=== PATIENT | female | born 1950 | race Caucasian/White ===

== ENCOUNTER 2017-07-04 13:48 | Emergency (ER) | payer OTHER ==
--- NOTE | 2017-07-04 16:08 | ER ---
Nurse's Notes [facility] Name: Sumi Abarca Age: 67 yrs Sex: Female : 1950 Arrival Date: 07/04/2017 Time: 13:49 Bed 16 [facility] MD: Diagnosis: Left foot fracture Presentation: 07/04 13:56 Presenting complaint: Patient states: mechanical fall from standing yesterday, pain in la1 left ankle. Transition of care: patient was not received from another setting of care. Onset of symptoms was July 04, 2017. Initial Sepsis Screen: Does the patient meet any 2 criteria? No. Patient's initial sepsis screen is negative. Does the patient have a suspected source of infection? No. Patient's initial sepsis screen is negative. Care prior to arrival: None. 13:56 Method Of Arrival: Wheelchair la1 13:56 Acuity: AYANA 4 la1 Historical: - Allergies: 13:57 prenavil; la1 13:57 Levaquin; la1 13:57 Cipro; la1 13:57 Demerol; la1 13:57 Green Dye; la1 - Home Meds: 14:00 amlodipine oral 7.5 mg 3 tabs nightly [Active]; pioglitazone 15 mg oral tab 1 tab once rb1 daily [Active]; glipizide 2.5 mg Oral tr24 1 tabs once daily [Active]; irbesartan 150 mg oral tab 1 tab once daily [Active]; simvastatin 20 mg oral tab 1 tab once daily [Active]; hydrochlorothiazide 12.5 mg Oral cap 1 cap once daily [Active]; gabapentin 300 mg oral cap 2 caps bedtime [Active]; - PMHx: 13:57 Diabetes - NIDDM; Hypertension; la1 - Immunization history:: Adult Immunizations up to date. - Social history:: Smoking status: Patient/guardian denies using tobacco. Screenin:00 Abuse screen: Denies threats or abuse. Nutritional screening: No deficits noted. rb1 Tuberculosis screening: No symptoms or risk factors identified. Fall Risk Fall in past 12 months (25 points). No secondary diagnosis (0 pts). No IV (0 pts). Ambulatory Aid- None/Bed Rest/Nurse Assist (0 pts). Gait- Normal/Bed Rest/Wheelchair (0 pts) Mental Status- Oriented to own ability (0 pts). Total Celestin Fall Scale indicates Low Risk Score (25-44 pts). Fall prevention measures have been instituted. Side Rails Up X 2 Placed close to Nursing Station 1:1 attendant Assigned to Pt. Frequent Obs/Assesments occuring Family Present and informed to notify staff if they need to leave bedside As available Patient and Family Educated on Fall Prevention Program and strategies. Assessment: 14:00 General: Appears in no apparent distress. comfortable, obese, Behavior is calm, rb1 cooperative. Pain: Complains of pain in left lateral ankle Pain currently is 7 out of 10 on a pain scale. Pain began 1 day ago. Aggravated by increased activity. Neuro: Level of Consciousness is awake, alert, obeys commands, Oriented to person, place, time, situation. Cardiovascular: Capillary refill < 3 seconds is brisk in bilateral toes. Respiratory: Airway is patent Respiratory effort is even, unlabored, Respiratory pattern is regular, symmetrical. GI: No signs and/or symptoms were reported involving the gastrointestinal system. : No signs and/or symptoms were reported regarding the genitourinary system. Derm: Skin is pink, warm \T\ dry. Musculoskeletal: Range of motion: limited in left toes. 15:00 Reassessment: Patient appears in no apparent distress at this time. No changes from rb1 previously documented assessment. 16:00 Reassessment: Patient appears in no apparent distress at this time. Patient and/or rb1 family updated on plan of care and expected duration. Pain level reassessed. Patient is alert, oriented x 3, equal unlabored respirations, skin warm/dry/pink. at bedside. Vital Signs: 13:58 BP 133 / 63; Pulse 62; Resp 19; Temp 97.5; Pulse Ox 100% on R/A; Weight 108.86 kg; la1 Height 5 ft. 2 in. (157.48 cm); 14:46 BP 149 / 76; Pulse 64; Resp 18; Pulse Ox 99% on R/A; rb1 15:45 BP 180 / 91; Pulse 57; Resp 18; Pulse Ox 97% on R/A; rb1 16:40 BP 161 / 63; Pulse 60; Resp 19; Pulse Ox 100% on R/A; rb1 13:58 Body Mass Index 43.90 (108.86 kg, 157.48 cm) la1 ED Course: 13:49 Patient arrived in ED. sb2 13:55 [facility] kb 13:55 Caleb Mnozon MD is Attending Physician. kb 13:57 Triage completed. la1 13:58 Arm band placed on left wrist. la1 14:00 Patient has correct armband on for positive identification. Bed in low position. Call rb1 light in reach. Side rails up X 1. Pulse ox on. NIBP on. 14:07 Ila Pinto, RN is Primary Nurse. rb1 15:34 X-ray completed. Portable x-ray completed in exam room. Patient tolerated procedure bb2 well. 15:41 Ankle Left 3 View XRAY In Process Unspecified. EDMS 16:40 No provider procedures requiring assistance completed. Patient did not have IV access rb1 during this emergency room visit. Administered Medications: No medications were administered Outcome: 16:07 Discharge ordered by MD. kb 16:40 Patient left the ED. rb1 16:40 Discharged to home via wheelchair, with significant other. rb1 16:40 Condition: stable 16:40 Discharge instructions given to patient, Instructed on discharge instructions, follow up and referral plans. medication usage, Demonstrated understanding of instructions, follow-up care, medications, Prescriptions given X 1. Signatures: Dispatcher [employer] [facility] Mary Anne Mccoy FNP-C SUPERVISOR [employer] Claudio Martinez RN RN la1 Ila Pinto, RN RN rb1 Abby Samuels bb2 Desiy Gillette sb2 Corrections: (The following items were deleted from the chart) 17:58 16:50 Patient left the ED. rb1 rb1
--- NOTE | 2017-07-04 16:08 | EDPHYS ---
Physician Documentation [facility] Name: Sumi Abarca Age: 67 yrs Sex: Female : 1950 Arrival Date: 07/04/2017 Time: 13:49 Bed 16 Private MD: ED Physician Caleb Monzon HPI: 07/04 14:40 This 67 yrs old Female presents to ER via Wheelchair with complaints of Ankle kb Injury. 14:40 The patient presents with an injury, pain, that is acute, swelling, tenderness. The kb complaints affect the left ankle. Onset: The symptoms/episode began/occurred just prior to arrival. Context: The problem was sustained at home, outdoors, resulted from the patient falling, while walking, The patient can fully bear weight on the affected extremity. the patient is able to ambulate. Associated signs and symptoms: Pertinent positives: swelling, Pertinent negatives: calf tenderness, fever, nausea, numbness, rash, tingling, vomiting, warmth, weakness. Modifying factors: The symptoms are alleviated by nothing, the symptoms are aggravated by nothing. Severity of symptoms: At their worst the symptoms were moderate, in the emergency department the symptoms are unchanged. The patient has not experienced similar symptoms in the past. The patient has not recently seen a physician. Historical: - Allergies: 13:57 prenavil; la1 13:57 Levaquin; la1 13:57 Cipro; la1 13:57 Demerol; la1 13:57 Green Dye; la1 - Home Meds: 14:00 amlodipine oral 7.5 mg 3 tabs nightly [Active]; pioglitazone 15 mg oral tab 1 tab once rb1 daily [Active]; glipizide 2.5 mg Oral tr24 1 tabs once daily [Active]; irbesartan 150 mg oral tab 1 tab once daily [Active]; simvastatin 20 mg oral tab 1 tab once daily [Active]; hydrochlorothiazide 12.5 mg Oral cap 1 cap once daily [Active]; gabapentin 300 mg oral cap 2 caps bedtime [Active]; - PMHx: 13:57 Diabetes - NIDDM; Hypertension; la1 - Immunization history:: Adult Immunizations up to date. - Social history:: Smoking status: Patient/guardian denies using tobacco. ROS: 14:35 Constitutional: Negative for fever, chills, and weight loss, Cardiovascular: Negative kb for chest pain, palpitations, and edema, Respiratory: Negative for shortness of breath, cough, wheezing, and pleuritic chest pain, Abdomen/GI: Negative for abdominal pain, nausea, vomiting, diarrhea, and constipation, Back: Negative for injury and pain, : Negative for injury, bleeding, discharge, and swelling, Skin: Negative for injury, rash, and discoloration, Neuro: Negative for headache, weakness, numbness, tingling, and seizure. 14:35 MS/extremity: Positive for injury or acute deformity, pain, swelling, tenderness, of the left lateral ankle. Exam: 14:35 Constitutional: This is a well developed, well nourished patient who is awake, alert, kb and in no acute distress. Head/Face: Normocephalic, atraumatic. Chest/axilla: Normal chest wall appearance and motion. Nontender with no deformity. No lesions are appreciated. Cardiovascular: Regular rate and rhythm with a normal S1 and S2. No gallops, murmurs, or rubs. Normal PMI, no JVD. No pulse deficits. Respiratory: Lungs have equal breath sounds bilaterally, clear to auscultation and percussion. No rales, rhonchi or wheezes noted. No increased work of breathing, no retractions or nasal flaring. Abdomen/GI: Soft, non-tender, with normal bowel sounds. No distension or tympany. No guarding or rebound. No evidence of tenderness throughout. Skin: Warm, dry with normal turgor. Normal color with no rashes, no lesions, and no evidence of cellulitis. Neuro: Awake and alert, GCS 15, oriented to person, place, time, and situation. Cranial nerves II-XII grossly intact. Motor strength 5/5 in all extremities. Sensory grossly intact. Cerebellar exam normal. Normal gait. 14:35 Musculoskeletal/extremity: Extremities: grossly normal except: noted in the left lateral ankle: pain, swelling, tenderness, ROM: intact in all extremities, Circulation is intact in all extremities. Sensation intact. Weight bearing: able to fully bear weight. Vital Signs: 13:58 BP 133 / 63; Pulse 62; Resp 19; Temp 97.5; Pulse Ox 100% on R/A; Weight 108.86 kg; la1 Height 5 ft. 2 in. (157.48 cm); 14:46 BP 149 / 76; Pulse 64; Resp 18; Pulse Ox 99% on R/A; rb1 15:45 BP 180 / 91; Pulse 57; Resp 18; Pulse Ox 97% on R/A; rb1 16:40 BP 161 / 63; Pulse 60; Resp 19; Pulse Ox 100% on R/A; rb1 13:58 Body Mass Index 43.90 (108.86 kg, 157.48 cm) la1 MDM: 13:58 Patient medically screened. kb 14:35 Data reviewed: vital signs, nurses notes. Data interpreted: Pulse oximetry: on room air kb is 100 %. Interpretation: normal. Counseling: I had a detailed discussion with the patient and/or guardian regarding: the historical points, exam findings, and any diagnostic results supporting the discharge/admit diagnosis, radiology results, the need for outpatient follow up, a orthopedic surgeon, to return to the emergency department if symptoms worsen or persist or if there are any questions or concerns that arise at home. 07/04 14:09 Order name: Ankle Left 3 View XRAY kb 07/04 16:06 Order name: Short Leg Splint; Complete Time: 16:44 kb Administered Medications: No medications were administered Disposition: 18:55 Co-signature as Attending Physician, Caleb Monzon MD. Disposition: 07/04/17 16:07 Discharged to Home. Impression: Left foot fracture. - Condition is Stable. - Discharge Instructions: Ankle Fracture, [id number]. - Prescriptions for Tramadol 50 mg Oral Tablet - take 1 tablet by ORAL route every 8 hours as needed; 12 tablet. - Medication Reconciliation Form, Thank You Letter, Antibiotic Education, Prescription Opioid Use form. - Follow up: Emergency Department; When: As needed; Reason: Worsening of condition. Follow up: Private Physician; When: 2 - 3 days; Reason: Recheck today's complaints, Continuance of care, Re-evaluation by your physician. Signatures: Dispatcher [employer] Mary Anne Cardona FNP-C FNP-Ckb Attema, Lee RN RN la1 Ila Pinto RN RN rb1 Caleb Monzon MD MD gs Corrections: (The following items were deleted from the chart) 16:50 16:07 07/04/2017 16:07 Discharged to Home. Impression: Left foot fracture. Condition is rb1 Stable. Forms are Medication Reconciliation Form, Thank You Letter, Antibiotic Education, Prescription Opioid Use. Follow up: Emergency Department; When: As needed; Reason: Worsening of condition. Follow up: Private Physician; When: 2 - 3 days; Reason: Recheck today's complaints, Continuance of care, Re-evaluation by your physician. kb
--- NOTE | 2017-07-04 17:08 | RAD REPORT ---
EXAM DESCRIPTION: RAD - Ankle Left 3 View - 07/04/2017 3:40 pm CLINICAL HISTORY: Fall, twisting injury, ankle pain COMPARISON: None. FINDINGS: No large fracture deformity seen. A thin crescent-shaped bony density at the tip of the me dial malleolus is likely an avulsion fracture. Correlation is needed with mechanism of injury and carlos n symptoms that may be localizing to the medial joint line. No dislocation or periosteal reaction. Pa tient has moderately prominent midfoot degenerative change. A small plantar spur is noted. Slight diogenes rowing of the tibiotalar joint space seen. Patient has prominent lateral soft tissue swelling. IMPRESSION: Patient has prominent lateral soft tissue swelling but no finding of fibula fracture. Suspected small bony avulsion from the tip of the medial malleolus.
== END 2017-07-04 16:50 | disposition home or self-care (01) ==
LOC: ER 13:48
PROC: 2W3RX1Z Immobilization of Left Lower Leg using Splint (ICD-10-PCS; principal; 2017-07-04)
DX: S92.902A Unspecified fracture of left foot, initial encounter for closed fracture (principal); W19.XXXA Unspecified fall, initial encounter; Y93.01 Activity, walking, marching and hiking; Y92.008 Other place in unspecified non-institutional (private) residence as the place of occurrence of the external cause; Z88.1 Allergy status to other antibiotic agents; Z88.5 Allergy status to narcotic agent; Z91.048 Other nonmedicinal substance allergy status; I10 Essential (primary) hypertension; E11.9 Type 2 diabetes mellitus without complications
CPT/HCPCS: 99283

== ENCOUNTER 2018-02-23 17:07 | Inpatient (IN) | payer OTHER ==
--- OUTSIDE RECORDS SUMMARY | 2018-02-23 17:11 | XMS REPORT | Continuity of Care Document ---
:1950 Author Organization Interface Problems Problem Status Onset Classification Date Comments Source Date Reported MORBID OBESITY / Active OVEREATING 017 [facility] MORBID OBESTIY/ Active MH OVEREATING 017 [facility] UNK Active MH 0[address] [place] R11.11 Z98.84 Active 017 [facility] [address],MORBID OBESITY Active [address] Diabetes Active Problem 11/24/2016 [facility] Hypercholesterolemia Active Problem 11/24/2016 [facility] Hypertension Active Problem 11/24/2016 [facility] Obesity Active Problem 11/24/2016 [facility] VOMITING WITHOUT NAUSEA Active [facility] BARIATRIC SURGERY Active MH STATUS [facility] MORBID (SEVERE) OBESITY Active MH DUE TO EXCESS CA [facility] Medications Medication Details Route Status Patient Ordering Order Source Instructions Provider Date Sodium Chloride 1,000 mL, Inactive 0.154 MEQ/ML Rate: 25 2016 [facility] Injectable ml/hr, Infuse Solution over: 40 hr, Route: IV, Dosing Weight 99.574 kg, Total Volume: 1,000, Start date: 06/16/16 9:06:00 CDT, Duration: 30 day, Stop date: 07/16/16 9:05:00 CDT Azo-Cranberry oral 0 Refill(s) Active tablet 2016 [facility] multivitamin Daily, 0 Active Refill(s) 2016 [facility] Vitamin B Complex 1 tab, PO, Active oral capsule Daily, # 30 2016 [facility] cap, 0 Refill(s) biotin PO, Daily, 0 Active Refill(s) 2016 [facility] Hydrochlorothiazid PO, Daily, 0 Active e Refill(s) 2016 [facility] Amlodipine PO, Daily, 0 Active Refill(s) 2016 [facility] acetaminophen-hydr 15 mL, Route: No Longer ocodone PO, Drug Form: Active 2014 [facility] SOLN, Q4H, PRN [facility] Pain Score 4-6, Start date: 05/13/14 9:46:00, Duration: 30 day, Stop date: 06/12/14 9:45:00Notes: Do not exceed 4gm/day of acetaminophen. (Same as: [place] 325/7.5) Ketorolac 30 mg, Route: Inactive IVP, Q6H, 2014 [facility] Dosing Weight [facility] 104.545, kg, Start date: 05/12/14 12:00:00, Duration: 6 doses or times, Stop date: 05/13/14 18:00:00 Sodium Chloride 25 mL, Route: Inactive 0.9% IV IV, Start 2014 [facility] date: 05/12/[address] [facility] 9:45:00, Duration: 30 day, Stop date: 06/11/14 9:44:00, PRN Line Flush BD Normal Saline 10 mL, Route: Inactive Flush IV, Drug Form: 2014 [facility] INJ, PRN, PRN [place] Line Flush, Start date: 05/12/14 9:44:00, Duration: 30 day, Stop date: 06/11/14 9:43:00Notes: (Same as: BD Posiflush) Ondansetron 4 mg, 2 mL, Inactive Route: IVP, 2014 [facility] Drug form: City INJ, Q12H, Dosing Weight 104.545, kg, PRN Nausea & Vomiting, Start date: 05/12/14 9:17:00, Duration: 30 day, Stop date: 06/11/14 9:16:00Notes: (Same as: Zofran) Promethazine 12.5 mg, 0.5 Inactive mL, Route: IM, 2014 [facility] Drug form: [facility] INJ, Q4H, Dosing Weight 104.545, kg, PRN Nausea & Vomiting, Start date: 05/12/14 9:17:00, Duration: 30 day, Stop date: 06/11/14 9:16:00Notes: Do not give IV push. (Same as: Phenergan) Acetaminophen 20 15 mL, Route: Inactive MG/ML / PO, Dosing 2014 [facility] Hydrocodone Weight [facility] Bitartrate 0.667 104.545, kg, MG/ML Oral Q4H, PRN Pain Solution Score 4-6, Start date: 05/12/14 9:17:00, Duration: 30 day, Stop date: 06/11/14 9:16:00 Calcium Chloride 1,000 mL, Inactive 0.0014 MEQ/ML / Rate: 125 2014 [facility] Potassium Chloride ml/hr, Infuse [place] 0.004 MEQ/ML / over: 8 hr, Sodium Chloride Route: IV, 0.103 MEQ/ML / Dosing Weight Sodium Lactate 104.545 kg, 0.028 MEQ/ML Total Volume: Injectable 1,000, Start Solution date: 05/12/14 9:17:00, Duration: 30 day, Stop date: 06/11/14 9:16:00 Midazolam 1 mg, 1 mL, Inactive Route: IVP2014 [facility] Drug form: [place] INJ, Q5Min, Dosing Weight 104.545, kg, PRN Anxiety, Start date: 05/12/14 7:46:00, Duration: 2 doses or times, Stop date: Limited # of timesNotes: (Same as: Versed) Flumazenil 0.2 mg, 2 mL, Inactive Route: IV2014 [facility] Drug form: [place] INJ, PRN, Dosing Weight 104.545, kg, PRN Benzodiazepine Reversal, Initial dose, Start date: 05/12/14 7:46:00, Duration: 30 day, Stop date: 06/11/14 7:45:00Notes: (Same as: Romazicon) Morphine 2 mg, 0.2 mL, Inactive Route: IVP, 2014 [facility] Drug form: [place] INJ, Q5Min, Dosing Weight 104.545, kg, PRN Pain Score 4-6, Start date: 05/12/14 7:46:00, Duration: 5 doses or times, Stop date: Limited # of timesNotes: (Same as:MORPhine Sulfate) 72 HR Scopolamine 1 patch, Inactive 0.0139 MG/HR Route: [facility], 2014 [facility] Transdermal Patch Drug Form: [facility] ERFILM, Dosing Weight 104.545, kg, ONCE, Apply behind ear. Avoid use in elderly., Start date: 05/12/14 7:46:00, Stop date: 05/12/14 7:46:00Notes: Change patch every 72 hours (Same as: Transderm-Scop ) Promethazine 6.25 mg, 0.25 Inactive mL, Route: 2014 [facility] IVPB, ONCE, City Dosing Weight 104.545, kg, PRN Nausea & Vomiting, Start date: 05/12/14 7:46:00Notes: Do not give IV push. (Same as: Phenergan) Ondansetron 4 mg, 2 mL, Inactive Route: IVP, 2014 [facility] Drug form: [place] INJ, ONCE, Dosing Weight 104.545, kg, PRN Nausea & Vomiting, Start date: 05/12/14 7:46:00Notes: (Same as: Zofran) Hetastarch 500 ml, 1000 Inactive ml/hr, Route: 2014 [facility] IVPB, Drug City Form: INJ, Dosing Weight 104.545, kg, ONCE, Start date: 05/12/14 7:46:00, Duration: 1 doses or times, Stop date: 05/12/14 7:46:00Notes: (Same as: Hespan) Non-formulary. Naloxone 0.04 mg, 0.1 Inactive mL, Route: 2014 [facility] IVP, Drug [facility] form: INJ, Q2MIN, Dosing Weight 104.545, kg, PRN Narcotic Reversal, Start date: 05/12/14 7:46:00, Duration: 8 doses or times, Stop date: Limited # of timesNotes: Same as Narcan Ephedrine 5 mg, 0.1 mL, Inactive Route: IVP, 2014 [facility] Drug form: [place] INJ, Q5Min, Dosing Weight 104.545, kg, PRN Low Blood Pressure, Start date: 05/12/14 7:46:00, Duration: 30 day, Stop date: 06/11/14 7:45:00Notes: (Same as: ePHEDrine Sulfate) Diphenhydramine 12.5 mg, 0.25 Inactive mL, Route: 2014 [facility] IVP, Drug [facility] form: INJ, Q6H, Dosing Weight 104.545, kg, PRN Itching, Start date: 05/12/14 7:46:00, Duration: 30 day, Stop date: 06/11/14 7:45:00Notes: (Same as: Benadryl) Atropine 0.2 mg, 0.5 Inactive mL, Route: 2014 [facility] IVP, Drug City form: INJ, Q5Min, Dosing Weight 104.545, kg, PRN Other -See Comment, as needed; for symptomatic pulse rate Fentanyl 25 microgram, Inactive 0.5 mL, Route: 2014 [facility] IVP, Drug City form: INJ, Q5Min, Dosing Weight 104.545, kg, PRN Pain Score 4-6, Start date: 05/12/14 7:46:00, Duration: 4 doses or times, Stop date: Limited # of timesNotes: (Same as: Sublimaze) Preservative free. Ketorolac 30 mg, 1 mL, Inactive Route: IVP2014 [facility] Drug form: [facility] INJ, ONCE, Dosing Weight 104.545, kg, Start date: 05/12/14 7:46:00, Duration: 1 doses or times, Stop date: 05/12/14 7:46:00Notes: (Same as:Toradol) IV bolus must be given >15 seconds. Give IM administration slowly and deeply into the muscle. Not for use > 4 days Ibuprofen 600 mg, 1 tab, Inactive Route: PO, 2014 [facility] Drug form: [place] TAB, Q6H, Dosing Weight 104.545, kg, PRN Pain Score 1-3, Start date: 05/12/14 7:46:00, Duration: 30 day, Stop date: 06/11/14 7:45:00Notes: (Same as: Motrin) "Do Not Crush" Take with food. Labetalol 10 mg, 2 mL, Inactive Route: IVP, 2014 [facility] Drug form: [place] INJ, Q5Min, Dosing Weight 104.545, kg, PRN Elevated BP, Start date: 05/12/14 7:46:00, Duration: 5 doses or times, Stop date: Limited # of timesNotes: (Same as: Normodyne, Trandate) Push over 2 minutes Give bolus over 2-3 minutes. esmolol 10 mg, 1 mL, Inactive Route: IVP2014 [facility] Drug form: [place] INJ, Q5Min, Dosing Weight 104.545, kg, PRN Other -See Comment, Start date: 05/12/14 7:46:00, Duration: 5 doses or times, Stop date: Limited # of timesNotes: (Same as: Brevibloc) Metoprolol 1 mg, 1 mL, Inactive Route: IVP2014 [facility] Drug form: [place] INJ, Q5Min, Dosing Weight 104.545, kg, PRN Other -See Comment, Start date: 05/12/14 7:46:00, Duration: 5 doses or times, Stop date: Limited # of timesNotes: (Same as: Lopressor) Push over 2 minutes Hydralazine 10 mg, 0.5 mL, Inactive Route: IV2014 [facility] Drug form: [place] INJ, Q20Min, Dosing Weight 104.545, kg, PRN Elevated BP, Start date: 05/12/14 7:46:00, Duration: 2 doses or times, Stop date: Limited # of timesNotes: (Same as: Apresoline) Push over 5 minutes Hydromorphone 0.5 mg, 0.25 Inactive mL, Route: 2014 [facility] IVP, Drug City form: INJ, Q5Min, Dosing Weight 104.545, kg, PRN Pain Score 7-10, Start date: 05/12/14 7:46:00, Duration: 4 doses or times, Stop date: Limited # of timesNotes: (Same as: Dilaudid) Calcium Chloride 1,000 mL, Inactive 0.0014 MEQ/ML / Rate: 125 2014 [facility] Potassium Chloride ml/hr, Infuse [facility] 0.004 MEQ/ML / over: 8 hr, Sodium Chloride Route: IV, 0.103 MEQ/ML / Dosing Weight Sodium Lactate 104.545 kg, 0.028 MEQ/ML Total Volume: Injectable 1,000, Start Solution date: 05/12/14 7:46:00, Duration: 30 day, Stop date: 06/11/14 7:45:00 ceFAZolin 2 gm, 100 mL, Inactive Route: IVPB, 2014 [facility] Drug form: [place] INJ, PRE OP, Start date: 05/12/14 6:30:00, Stop date: 05/12/14 21:00:00Notes: Same as: Ancef heparin 5,000 unit, 1 Inactive mL, Route: 2014 [facility] SUB-Q, Drug City form: INJ, PRE OP, Start date: 05/12/14 6:30:00, Stop date: 05/12/14 21:00:00Notes: porcine heparin Fenofibrate 145 MG 145 mg=1 tab, Active Oral Tablet PO, Daily, # 2014 [facility] 30 tab, 0 City Refill(s) Furosemide 20 MG 20 mg=1 tab, Active Oral Tablet PO, Daily, # 2014 [facility] 30 tab, 0 City Refill(s) simvastatin 20 mg 20 mg=1 tab, Active oral tablet PO, Bedtime, # 2014 [facility] 30 tab, 0 City Refill(s) irbesartan 150 mg 150 mg=1 tab, Active oral tablet PO, Daily, # 2014 [facility] 30 tab, 0 City Refill(s) 24 HR Glipizide 2.5 mg=1 tab, Active 2.5 MG Extended PO, Daily, # 2014 [facility] Release Tablet 30 tab, 0 City Refill(s) pioglitazone 15 mg 15 mg=1 tab, Active oral tablet PO, Daily, # 2014 [facility] 30 tab, 0 City Refill(s) metoprolol 12.5 mg=0.5 Active tartrate 25 mg tab, PO, BID, 2014 [facility] oral tablet # 180 tab, 0 City Refill(s) Allergies, Adverse Reactions, Alerts Substance Category Reaction Severity Reaction Status Date Comments Source type Reported Allergy Assertion Drug Active [facility] MH Unverified<atylor allergy green # 3 [place] p>1</sup> ciprofloxacin Assertion Drug Active [facility] allergy [place] Demerol HCl Assertion Drug Active [facility] allergy [place] Levaquin Assertion Drug Active [facility] allergy [place] Prinivil Assertion Drug Active [facility] allergy [place] Immunizations Immunization Date Given Site Status Last Updated Comments Source Results Order Name Results Value Reference Date Interpretation Comments Source Range Fluoroscop Fluoroscopy Patient Name: CAMERON AWAD 10/23 - y assist assist to - [facility] to 1 hour hour DX : 1950; Age: 66 years y/o Female DX MR: [id number] Read by: Raghu Gardner MD Dictated Date/time: 10/23/16 16:19 Electronically Signed by: Raghu Gardner MD 10/23/16 16:20 FINAL REPORT Study: Fluoroscopy assist to 1 hour DX 10/23/2016 2:56 PM CDT Ordering Physician: Alberta Chen Clinical Indication: fluoro time: 14 sec. dose: 6 mGy Barium - morbid obesity, overeating; Comparison: None fluoro time: 14 sec. dose: 6 mGy Barium - morbid obesity, overeating Lap band check was performed by the lap band nurse. Fluoroscopic assistance for the lap band check was provided by the radiologist. SL: [id number] ANEMIA Vitamin B12 460 pg/mL 254 - 1320 06/09 STUDY Lv [facility] CHEM PANEL Vitamin D2 null 06/09 ,25 ([place]) [facility] CHEM PANEL Vitamin D 42 pg/mL 06/09 Result Comment: Reference Range: 1,25 ([place]) Adults: 21 - 65 [facility] Total CHEM PANEL Vitamin D3 42 pg/mL 06/09 Result Comment: Performed At: [facility] ,25 ([place]) [address] [place] [id number] [facility] Shay Ascencio MD Ph:[phone] CHEM PANEL Magnesium 2.3 mg/dL 1.8 - 2.4 06/09 [facility] CHEM PANEL Vitamin B6 31.2 ug/L 2.0 - 32.8 06/09 Result Comment: Performed At: [facility] [address], [place] [id number] [facility] Blake Lucio MD Ph:[phone] CHEM PANEL VITAMIN B1 218.8 66.5 - 06/09 Result Comment: Performed At: [facility] (THIAMINE) nMol/L 200.0 [address], [place] [id number] [facility] WHOLE BLOOD Blake Lucio MD Ph:[phone] CHEM PANEL eGFR 72 06/09 Result Comment: The eGFR is calculated using the CKD-EPI formula. In most young, healthy individuals the eGFR will be >90 mL/ min/1.73m2. The eGFR declines with age. An eGFR of 60-89 may be normal in mL/min/1.7 some populations, particularly the elderly, for whom the CKD-EPI formula has not been extensively validated. Use of the eGFR is not recommended in the following populations: [facility] 3m2 Individuals with unstable creatinine concentrations, including patients and those with serious co-morbid conditions. Patients with extremes in muscle mass or diet. The data above are obtained from the National Kidney Disease Education Program (NKDEP) which additionally recommends that when the eGFR is used in patients with extremes of body mass index for purposes of drug dosing, the eGFR should be multiplied by the estimated BMI. CHEM PANEL Alk Phos 77 unit/L 39 - 136 06/09 [facility] CHEM PANEL AST 13 unit/L 0 - 37 06/09 [facility] CHEM PANEL Bili Total 0.5 mg/dL 0.2 - 1.3 06/09 [facility] CHEM PANEL Total 7.6 g/dL 6.4 - 8.4 06/09 [facility] CHEM PANEL Creatinine 0.85 mg/dL 0.50 - 06/09 MH Lvl 1.40 [place] CHEM PANEL ALT 21 unit/L 0 - 65 06/09 [place] CHEM PANEL Albumin Lvl 4.1 g/dL 3.5 - 5.0 06/09 [place] CHEM PANEL Chloride Lvl 103 meq/L 95 - 109 06/09 [place] CHEM PANEL Calcium Lvl 9.7 mg/dL 8.5 - 10.5 06/09 [place] CHEM PANEL CO2 30 meq/L 24 - 32 06/09 [facility] CHEM PANEL BUN 22 mg/dL 7 - 22 06/09 [facility] CHEM PANEL Glucose Lvl 99 mg/dL 70 - 99 06/09 [place] CHEM PANEL Sodium Lvl 142 meq/L 135 - 145 06/09 [place] CHEM PANEL Potassium 4.4 meq/L 3.5 - 5.1 06/09 MH Lvl [place] CHEM PANEL B/C Ratio 26 6 - 25 06/09 [place] CHEM PANEL AGAP 13.4 meq/L 10.0 - 04 MH 20.0 [place] CHEM PANEL Globulin 3.5 g/dL 2.7 - 4.2 06/09 [facility] CHEM PANEL A/G Ratio 1.2 0.7 - 1.6 06/09 [facility] HEMATOLOGY MCHC 34.2 g/dL 32.0 - 06/09 MH 36.0 [facility] HEMATOLOGY RDW 13.5 % 11.5 - 06/09 MH 14. [facility] HEMATOLOGY Platelet 213 K/CMM 133 - 450 06/09 [facility] HEMATOLOGY MPV 8.0 fL 7.4 - 10.4 06/09 [facility] HEMATOLOGY MCH 30.7 pg 27.0 - 06/09 MH 31.0 [facility] HEMATOLOGY WBC 5.1 K/CMM 3.7 - 10.4 06/09 [facility] HEMATOLOGY RBC 4.70 M/CMM 4.20 - 06/09 MH 5.40 /2016 [facility] HEMATOLOGY Hgb 14.4 g/dL 12.0 - 06/09 MH 16.0 [facility] HEMATOLOGY MCV 89.8 fL 80.0 - 06/09 MH 98.0 [facility] HEMATOLOGY Hct 42.2 % 36.0 - 06/09 MH 48.0 [facility] HEMATOLOGY Basophils 1.2 % 0.0 - 1.0 06/09 [facility] HEMATOLOGY Segs-Bands # 2.9 K/CMM 1.5 - 8.1 06/09 [facility] HEMATOLOGY Lymphocytes 1.7 K/CMM 1.0 - 5.5 06/09 MH /2016 [facility] HEMATOLOGY Monocytes # 0.4 K/CMM 0.0 - 0.8 06/09 [facility] HEMATOLOGY Eosinophils 0.1 K/CMM 0.0 - 0.5 06/09 /2016 [facility] HEMATOLOGY Basophils # 0.1 K/CMM 0.0 - 0.2 06/09 [facility] HEMATOLOGY Lymphocytes 33.9 % 20.0 - 06/09 MH 40.0 [facility] HEMATOLOGY Segs 55.9 % 45.0 - 06/09 MH 75.0 [facility] HEMATOLOGY Monocytes 7.1 % 2.0 - 12.0 06/09 [facility] HEMATOLOGY Eosinophils 1.9 % 0.0 - 4.0 06/09 [facility] Upper GI Upper GI OMNIPAQUE UPPER GI SERIES 05/12 - Series w Series - [facility] soluble DX soluble DX CLINICAL INDICATION: Postop, lap band placement Read by: Agustín Arce MD Dictated Date/time: 05/12/14 13:21 Electronically Signed by: Agustín Arce MD 05/12/14 13:24 FINAL REPORT COMPARISON: None. The fluoroscopy time is 0.5minutes. TECHNIQUE: Initial senior business consultant image was obtained. Following oral ingestion of Omnipaque barium contrast fluoroscopic and spot images of the abdomen were performed. . FINDINGS: Initial senior business consultant image demonstrates lap band in the left upper quadrant. Cholecystectomy clips right upper quadrant. Small volume of Omnipaque given orally passed easily from the distal esophagus into the gastric tube through the lab band. No contrast of obstruction is seen. No definite contrast extravasation. IMPRESSION: Status post lap band placement without evidence of obstruction. CHEM PANEL eGFR 68 05/05 1Result Comment: The eGFR is calculated using the CKD-EPI formula. In most young, healthy individuals the eGFR will be >90 mL/ min/1.73m2. The eGFR declines with age. An eGFR of 60-89 may be normal in mL/min/1.7 /2014 some populations, particularly the elderly, for whom the CKD-EPI formula has not been extensively validated. Use of the eGFR is not recommended in the following populations: [address] Individuals with unstable creatinine concentrations, including patients and those with serious co-morbid conditions. Patients with extremes in muscle mass or diet. The data above are obtained from the National Kidney Disease Education Program (NKDEP) which additionally recommends that when the eGFR is used in patients with extremes of body mass index for purposes of drug dosing, the eGFR should be multiplied by the estimated BMI. CHEM PANEL Creatinine 0.9 mg/dL 0.5 - 1.4 05/05 MH Lvl /2014 [facility] CHEM PANEL Total 7.2 g/dL 6.4 - 8.4 05/05 MH Protein [facility] CHEM PANEL Bili Total 0.3 mg/dL 0.2 - 1.3 05/05 [facility] CHEM PANEL AST 29 unit/L 0 - 37 05/05 [facility] CHEM PANEL ALT 33 unit/L 0 - 65 05/05 [facility] CHEM PANEL Alk Phos 33 unit/L 39 - 136 05/05 [facility] CHEM PANEL Chloride Lvl 104 meq/L 95 - 109 05/05 [facility] CHEM PANEL Potassium 4.5 meq/L 3.5 - 5.1 05/05 MH Lvl /2014 [facility] CHEM PANEL Sodium Lvl 140 meq/L 135 - 145 05/05 [facility] CHEM PANEL BUN 38 mg/dL 7 - 22 05/05 [facility] CHEM PANEL CO2 27 meq/L 24 - 32 05/05 [facility] CHEM PANEL Albumin Lvl 3.6 g/dL 3.5 - 5.0 05/05 [facility] CHEM PANEL Glucose Lvl 83 mg/dL 70 - 99 05/05 2Interpretive Data: Adult reference range values reflect the clinical guidelines of the [place] [employer]. [facility] CHEM PANEL Calcium Lvl 9.4 mg/dL 8.5 - 10.5 05/05 [facility] CHEM PANEL A/G Ratio 1.0 0.7 - 1.6 05/05 [facility] CHEM PANEL Globulin 3.6 g/dL 2.0 - 4.0 05/05 [facility] CHEM PANEL B/C Ratio 42 6 - 25 05/05 [facility] CHEM PANEL AGAP 13.5 meq/L 10.0 - 05/05 MH 20.0 [facility] HEMATOLOGY Basophils 0.5 % 0.0 - 1.0 05/05 [facility] HEMATOLOGY Eosinophils 1.9 % 0.0 - 4.0 05/05 [facility] HEMATOLOGY Segs-Bands # 3.3 K/CMM 1.5 - 8.1 05/05 [facility] HEMATOLOGY Monocytes # 0.4 K/CMM 0.0 - 0.8 05/05 [facility] HEMATOLOGY Lymphocytes 2.3 K/CMM 1.0 - 5.5 05/05 MH [facility] HEMATOLOGY Eosinophils 0.1 K/CMM 0.0 - 0.5 05/05 [facility] HEMATOLOGY Basophils # 0.0 K/CMM 0.0 - 0.2 05/05 [facility] HEMATOLOGY Segs 53.7 % 45.0 - 05/05 MH 75.0 [facility] HEMATOLOGY Lymphocytes 36.9 % 20.0 - 05/05 MH 40.0 [facility] HEMATOLOGY Monocytes 7.0 % 2.0 - 12.0 05/05 [facility] HEMATOLOGY MCH 29.1 pg 27.0 - 05/05 MH 31.0 /2014 [facility] HEMATOLOGY MCHC 32.9 g/dL 32.0 - 05/05 36.0 /2014 [facility] HEMATOLOGY MCV 88.3 fL 80.0 - 05/05 98.0 /2014 [facility] HEMATOLOGY WBC 6.2 K/CMM 3.7 - 10.4 05/05 /2014 [facility] HEMATOLOGY RBC 4.05 M/CMM 4.20 - 05/05 5.40 /2014 [facility] HEMATOLOGY RDW 14.5 % 11.5 - 05/05 14.5 /2014 [facility] HEMATOLOGY Hct 35.7 % 36.0 - 05/05 48.0 /2014 [facility] HEMATOLOGY Hgb 11.8 g/dL 12.0 - 05/05 16.0 /2014 [facility] HEMATOLOGY Platelet 255 K/CMM 133 - 450 05/05 /2014 [facility] HEMATOLOGY MPV 9.1 fL 7.4 - 10.4 05/05 [facility] Vital Signs Vital Sign Value Date Comments Source Respitory Rate 18 06/16/2016 [facility] Systolic (mm Hg) 127 06/16/2016 [facility] Diastolic (mm Hg) 115 06/16/2016 [facility] Systolic (mm Hg) 127 06/16/2016 [facility] Diastolic (mm Hg) 62 06/16/2016 [facility] Respitory Rate 13 06/16/2016 [facility] Respitory Rate 9 06/16/2016 [facility] Systolic (mm Hg) 148 06/16/2016 [facility] Diastolic (mm Hg) 72 06/16/2016 [facility] Temperature Oral (F) 97.5 F 06/09/2016 [facility] Heart Rate 65 06/09/2016 [facility] Weight 99.574 06/09/2016 [facility] BMI Calculated 40.15 06/09/2016 [facility] Height 157.48 cm 06/09/2016 [facility] Respitory Rate 16 05/12/2014 [facility] Systolic (mm Hg) 118 05/12/2014 [facility] Diastolic (mm Hg) 53 05/12/2014 [facility] Systolic (mm Hg) 130 05/12/2014 [facility] Diastolic (mm Hg) 50 05/12/2014 [facility] Respitory Rate 16 05/12/2014 [facility] Systolic (mm Hg) 129 05/12/2014 [facility] Diastolic (mm Hg) 51 05/12/2014 [facility] Respitory Rate 16 05/12/2014 [facility] Weight 104.545 05/05/2014 [facility] BMI Calculated 42.16 05/05/2014 [facility] Height 157.48 cm 05/05/2014 [facility] Encounters Location Location Encounter Encounter Reason Attending ADM DC Status Source Details Type Number For Provider Date Date Visit [facility] [id number] Christopher 05/12 05/12 [facility] Kim /2014 [facility] Bedded [id number] Pel[place] 06/16 06/16 [facility] Dariel /[address] [facility] Recurring [id number] Alberta 06/26 07/26 Demetrio Chen /[address] [facility] Outpatient [id number] Alberta 10/16 10/16 Demetrio Chen /2016 [facility] Rec[facility] [id number] Alberta 10/23 11/22 Dem[facility]rio Chen /2016 [facility] Procedures Procedure Code Date Perfomer Comments Source section [id number] [place] Cholecystectomy [id number] [place] Hysterectomy [id number] [place] Laparoscopic [id number] [place] adjustable gastric banding Tubal ligation [id number] [place] section [id number] [facility] Cholecystectomy [id number] [facility] Hysterectomy [id number] [facility] [place]
[2018-02-23] MEDS ORDERED: METOPROLOL TAR 50 MG TAB ONE (17:29)
[2018-02-23] MEDS ORDERED: ASPIRIN 81 MG CHEWABLE TABLET ONE (17:29)
--- NOTE | 2018-02-23 17:39 | ER ---
Nurse's Notes [facility] Name: Sumi Abarca Age: 67 yrs Sex: Female : 1950 Arrival Date: 02/23/2018 Time: 17:09 Bed 28 Private MD: Diagnosis: Unspecified atrial fibrillation Presentation: 02/23 17:10 Presenting complaint: Patient had outpatient EKG obtained after experiencing ss lightheadedness. It was discovered patient was in new onset AFIB RVR, HR 118. Lace Paper Machine Operator requested that patient come to ER for further evaluation and treatment. Transition of care: cardiology. Onset of symptoms is unknown. Risk Assessment: Do you want to hurt yourself or someone else? Patient reports no desire to harm self or others. Initial Sepsis Screen:. Care prior to arrival: EKG obtained; a fib RVR; HR 118. 17:10 Method Of Arrival: Wheelchair ss 17:10 Acuity: AYANA 3 ss 19:36 Initial Sepsis Screen: Does the patient meet any 2 criteria? No. Patient's initial rr5 sepsis screen is negative. Does the patient have a suspected source of infection? No. Patient's initial sepsis screen is negative. Historical: - Allergies: 17:12 Cipro; ss 17:12 Demerol; ss 17:12 Green Dye; ss 17:12 Levaquin; ss 17:12 prenavil; ss - PMHx: 17:12 Diabetes - NIDDM; Hypertension; ss - Immunization history:: Adult Immunizations unknown. - Family history:: not pertinent. - Social history:: Smoking status: Patient/guardian denies using tobacco. - Ebola Screening: : Patient negative for fever greater than or equal to 101.5 degrees Fahrenheit, and additional compatible Ebola Virus Disease symptoms Patient denies exposure to infectious person Patient denies travel to an Ebola-affected area in the 21 days before illness onset. - Hospitalizations: : No recent hospitalization is reported. Screenin:26 Abuse screen: Denies threats or abuse. Denies injuries from another. Nutritional jl7 screening: No deficits noted. Tuberculosis screening: No symptoms or risk factors identified. Fall Risk IV access (20 points). Assessment: 17:20 General: Appears in no apparent distress. uncomfortable, Behavior is calm, cooperative, jl7 appropriate for age. Pain: Denies pain. Neuro: Level of Consciousness is awake, alert, obeys commands, Oriented to person, place, time, situation. Cardiovascular: Denies chest pain, palpitations, shortness of breath, Heart tones present Patient's skin is warm and dry. Respiratory: Airway is patent Respiratory effort is even, unlabored, Respiratory pattern is regular, symmetrical. GI: No signs and/or symptoms were reported involving the gastrointestinal system. : No signs and/or symptoms were reported regarding the genitourinary system. EENT: No signs and/or symptoms were reported regarding the EENT system. Derm: Skin is pink, warm \T\ dry. Musculoskeletal: No signs and/or symptoms reported regarding the musculoskeletal system. 18:21 Reassessment: Dr Fish at bedside discussing plan of care. jl7 19:10 General: Appears in no apparent distress. comfortable, Behavior is calm, cooperative, rr5 appropriate for age. Pain: Denies pain. Neuro: Level of Consciousness is awake, alert, obeys commands, Oriented to person, place, time, situation. Cardiovascular: Denies chest pain, palpitations, shortness of breath, Capillary refill < 3 seconds Patient's skin is warm and dry. Respiratory: Airway is patent Respiratory effort is even, unlabored, Respiratory pattern is regular, symmetrical. GI: No signs and/or symptoms were reported involving the gastrointestinal system. : No signs and/or symptoms were reported regarding the genitourinary system. EENT: No signs and/or symptoms were reported regarding the EENT system. Derm: Skin is intact, Skin is pink, warm \T\ dry. Skin temperature is warm. Musculoskeletal: Capillary refill < 3 seconds, Range of motion: intact in all extremities. 20:15 Reassessment: Patient appears in no apparent distress at this time. Patient and/or rr5 family updated on plan of care and expected duration. Pain level reassessed. chatting with her leasing consultant comfortably Patient denies pain at this time. Patient states feeling better. Patient states symptoms have improved. Vital Signs: 17:10 BP 122 / 60; Pulse 136; Resp 16 S; Pulse Ox 97% on R/A; Pain 0/10; jl7 18:21 BP 110 / 68; Pulse 111; Resp 16 S; Pulse Ox 97% on R/A; Pain 0/10; jl7 18:52 BP 107 / 88; Pulse 103; Resp 16 S; Temp 98.7; Pulse Ox 97% on R/A; jl7 19:10 BP 106 / 50; Pulse 108; Resp 14; Temp 98.6; Pulse Ox 99% ; rr5 20:30 BP 110 / 77; Pulse 95; Resp 18; Pulse Ox 98% ; rr5 ED Course: 17:09 Patient arrived in ED. ss 17:10 Olivier Fish MD is Attending Physician. rn 17:12 Triage completed. ss 17:15 Patient has correct armband on for positive identification. Placed in gown. Bed in low jl7 position. Call light in reach. Side rails up X 1. laboratory monitor on. Pulse ox on. NIBP on. Warm blanket given. 17:22 Saul Becerra RN is Primary Nurse. jl7 17:32 EKG done, by industrial technology education teacher. reviewed by Olivier Fish MD. sm3 17:34 Missed attempt(s): 22 gauge in left antecubital area. Bleeding controlled, band aid mw2 applied, catheter tip intact. 17:38 Jaiden Williamson MD is Hospitalizing Provider. rn 17:43 Initial lab(s) drawn, by va, sent to lab. Inserted saline lock: 24 gauge in right hand, jl7 using aseptic technique. Blood collected. 17:50 XRAY Chest (1 view) In Process Unspecified. EDMS 19:10 Arm band placed on. rr5 19:31 No provider procedures requiring assistance completed. Patient admitted, IV remains in rr5 place. intact, No redness/swelling at site. Administered Medications: 17:23 Drug: Aspirin Chewable Tablet 324 mg Route: PO; jl7 18:11 Follow up: Response: No adverse reaction jl7 17:23 Drug: Metoprolol TARTRATE (Lopressor) 50 mg Route: PO; jl7 17:55 Follow up: Response: No adverse reaction; Cardiac rhythm is unchanged jl7 17:51 CANCELLED (Duplicate Order): Metoprolol TARTRATE (Lopressor) 50 mg PO once rn 18:00 Drug: Metoprolol 5 mg Route: IVP; Site: right hand; jl7 18:54 Follow up: Response: No adverse reaction jl7 18:30 Drug: NS 0.9% 500 ml Route: IV; Rate: bolus; Site: right hand; jl7 19:38 Follow up: Response: No adverse reaction; IV Status: Completed infusion; IV Intake: rr5 500ml Intake: 19:38 IV: 500ml; Total: 500ml. rr5 Outcome: 17:39 Decision to Hospitalize by Provider. rn 20:06 Admitted to Med/surg accompanied by tech, via stretcher, with chart, Report called to griselda camp RN 20:06 Condition: stable 20:48 Patient left the ED. rr5 Signatures: Dispatcher [employer] EDMS Olivier Fish MD MD rn Smirch, Shelby, RN RN ss Leal, Jahala, RN RN jl7 Jerel Garcia 2 Mckenzie Machado 3 Jose Cruz Fletcher RN RN rr5 Corrections: (The following items were deleted from the chart) 18:54 18:52 BP 107 / 88; Pulse 103bpm; Resp 16bpm; Spontaneous; Pulse Ox 97% RA; jl7 jl7 19:32 19:31 Patient admitted, IV remains in place. rr5 rr5
--- NOTE | 2018-02-23 17:39 | EDPHYS ---
Physician Documentation [facility] Name: Sumi Abarca Age: 67 yrs Sex: Female : 1950 Arrival Date: 02/23/2018 Time: 17:09 Bed 28 Private MD: ED Physician Olivier Fish HPI: 02/23 17:12 This 67 yrs old Female presents to ER via Wheelchair with complaints of rn abnormal EKG. 17:12 The patient presents with a history of irregular heart beat. Onset: The rn symptoms/episode began/occurred at an unknown time. Modifying factors: The symptoms are aggravated by nothing. The symptoms are alleviated by nothing. Severity of symptoms: At their worst the symptoms were mild in the emergency department the symptoms are unchanged. The patient has not experienced similar symptoms in the past. The patient has been recently seen by a physician:. Sent by Dr. Tovar to get EKG due to irregular rhythm, patient reports feeling lightheaded today, has had episodes of palpitations in past, not sure how often but enough to notice. Went to see GI today for routine screening, no active GI issues. No chest pain/sob. . Historical: - Allergies: 17:12 Cipro; ss 17:12 Demerol; ss 17:12 Green Dye; ss 17:12 Levaquin; ss 17:12 prenavil; ss - PMHx: 17:12 Diabetes - NIDDM; Hypertension; ss - Immunization history:: Adult Immunizations unknown. - Family history:: not pertinent. - Social history:: Smoking status: Patient/guardian denies using tobacco. - Ebola Screening: : Patient negative for fever greater than or equal to 101.5 degrees Fahrenheit, and additional compatible Ebola Virus Disease symptoms Patient denies exposure to infectious person Patient denies travel to an Ebola-affected area in the 21 days before illness onset. - Hospitalizations: : No recent hospitalization is reported. ROS: 17:12 Constitutional: Negative for fever, chills, and weight loss, Eyes: Negative for injury, rn pain, redness, and discharge, Neck: Negative for injury, pain, and swelling, Cardiovascular: Negative for chest pain, and edema, Respiratory: Negative for shortness of breath, cough, wheezing, and pleuritic chest pain, Abdomen/GI: Negative for abdominal pain, nausea, vomiting, diarrhea, and constipation, MS/Extremity: Negative for injury and deformity, Skin: Negative for injury, rash, and discoloration, Neuro: Negative for headache, weakness, numbness, tingling, and seizure. Exam: 17:12 Constitutional: This is a well developed, well nourished patient who is awake, alert, rn and in no acute distress. Head/Face: Normocephalic, atraumatic. Eyes: Pupils equal round and reactive to light, extra-ocular motions intact. Lids and lashes normal. Conjunctiva and sclera are non-icteric and not injected. Cornea within normal limits. Periorbital areas with no swelling, redness, or edema. ENT: MMM Cardiovascular: tachycardic, irregular, no murmur Respiratory: Lungs have equal breath sounds bilaterally, clear to auscultation, No increased work of breathing, no retractions or nasal flaring. Abdomen/GI: soft, non-tender MS/ Extremity: Pulses equal, no cyanosis. Neurovascular intact. Full, normal range of motion. Equal circumference. Neuro: Awake and alert, GCS 15, oriented to person, place, time, and situation. Cranial nerves II-XII grossly intact. Motor strength 5/5 in all extremities. Sensory grossly intact. Cerebellar exam normal. Normal gait. Vital Signs: 17:10 BP 122 / 60; Pulse 136; Resp 16 S; Pulse Ox 97% on R/A; Pain 0/10; jl7 18:21 BP 110 / 68; Pulse 111; Resp 16 S; Pulse Ox 97% on R/A; Pain 0/10; jl7 18:52 BP 107 / 88; Pulse 103; Resp 16 S; Temp 98.7; Pulse Ox 97% on R/A; jl7 19:10 BP 106 / 50; Pulse 108; Resp 14; Temp 98.6; Pulse Ox 99% ; rr5 20:30 BP 110 / 77; Pulse 95; Resp 18; Pulse Ox 98% ; rr5 MDM: 17:10 Patient medically screened. rn 17:38 ED course: Called Dr. Williamson for admission, no answer, texted \T\ 17:38. Waiting for call rn back. . 17:50 Differential diagnosis: arrythmia, dehydration. Data reviewed: vital signs, nurses rn notes, EKG, and as a result, I will admit patient. Counseling: I had a detailed discussion with the patient and/or guardian regarding: the historical points, exam findings, and any diagnostic results supporting the discharge/admit diagnosis, lab results, the need for further work-up and treatment in the hospital. Response to treatment: the patient's symptoms have mildly improved after treatment. 02/23 17:10 Order name: Basic Metabolic Panel; Complete Time: 18:26 rn 02/23 17:10 Order name: CBC with Diff; Complete Time: 18: rn 02/23 17:10 Order name: Magnesium; Complete Time: 18: rn 02/23 17:10 Order name: NT PRO-BNP; Complete Time: 18: rn 02/23 17:10 Order name: Troponin (emerg Dept Use Only); Complete Time: 18: rn 02/23 17:10 Order name: TSH; Complete Time: 18: rn 02/23 17:10 Order name: XRAY Chest (1 view) rn 02/23 17:10 Order name: EKG; Complete Time: 17: rn 02/23 17:10 Order name: T4 Free; Complete Time: 18: rn 02/23 17:10 Order name: Cardiac monitoring; Complete Time: 17:24 rn 02/23 17:10 Order name: EKG - Nurse/Tech; Complete Time: 17: rn 02/23 17:10 Order name: IV Saline Lock; Complete Time: : rn 02/23 17:10 Order name: Labs collected and sent; Complete Time: 17: rn 02/23 17:10 Order name: O2 Per Protocol; Complete Time: 17: rn 02/23 17:10 Order name: O2 Sat Monitoring; Complete Time: 17:23 rn Administered Medications: 17:23 Drug: Aspirin Chewable Tablet 324 mg Route: PO; jl7 18:11 Follow up: Response: No adverse reaction jl7 17:23 Drug: Metoprolol TARTRATE (Lopressor) 50 mg Route: PO; jl7 17:55 Follow up: Response: No adverse reaction; Cardiac rhythm is unchanged 7 17:51 CANCELLED (Duplicate Order): Metoprolol TARTRATE (Lopressor) 50 mg PO once rn 18:00 Drug: Metoprolol 5 mg Route: IVP; Site: right hand; 7 18:54 Follow up: Response: No adverse reaction 7 18:30 Drug: NS 0.9% 500 ml Route: IV; Rate: bolus; Site: right hand; [facility] 19:38 Follow up: Response: No adverse reaction; IV Status: Completed infusion; IV Intake: rr5 500ml Disposition: 02/23/18 17:39 Hospitalization ordered by Jaiden Williamson for Inpatient Admission. Preliminary diagnosis is Unspecified atrial fibrillation. - Bed requested for Telemetry/MedSurg (Inpatient). - Status is Inpatient Admission. rr5 - Condition is Stable. - Problem is new. - Symptoms have improved. UTI on Admission? No Signatures: Dispatcher [employer] EDMS Claribel Duncan, RN RN dw Olivier Fish MD MD rn Smirch, Shelby, RN RN Saul White RN RN jl7 Jose Cruz Fletcher RN RN rr5 Corrections: (The following items were deleted from the chart) 17:51 17:51 Metoprolol TARTRATE (Lopressor) 50 mg PO once ordered. rn rn 19:25 17:39 Hospitalization Ordered by Jaiden Williamson MD for Inpatient Admission. Preliminary dw diagnosis is Unspecified atrial fibrillation. Bed requested for Telemetry/MedSurg (Inpatient). Status is Inpatient Admission. Condition is Stable. Problem is new. Symptoms have improved. UTI on Admission? No. rn 20:48 19:25 02/23/2018 17:39 Hospitalization Ordered by Jaiden Williamson MD for Inpatient rr5 Admission. Preliminary diagnosis is Unspecified atrial fibrillation. Bed requested for Telemetry/MedSurg (Inpatient). Status is Inpatient Admission. Condition is Stable. Problem is new. Symptoms have improved. UTI on Admission? No. dw
[2018-02-23] MEDS ORDERED: METOPROLOL TARTRATE 5 MG/5 ML INJ IV ONE (18:10)
[2018-02-23 18:16] LABS: Absolute Lymphocytes (CBC) 2.3 K/uL (0.7-4.9); Absolute Monocytes 0.6 K/uL (0.1-1.3); Eosinophils % 5.1 % (0-4.4); Hematocrit 40.3 % (36.0-45.0); Lymphocytes % 31.8 % (15.3-44.8); MPV 8.4 fL (7.6-11.3); Monocytes % 7.6 % (3.3-12.3); RBC Red Blood Cell Count 4.51 M/uL (3.86-4.86)
[2018-02-23 18:23] LABS: BUN Blood Urea Nitrogen 40 mg/dL (7-18); Bicarbonate 29 mmol/L (21-32); Glucose Level 80 mg/dL (74-106); Magnesium 2.6 mg/dL (1.8-2.4); NT PRO-BNP 2235 pg/mL (<125); Potassium 4.4 mmol/L (3.5-5.1); Sodium Level 142 mmol/L (136-145); Thyroid Stimulating Hormone 0.687 uIU/mL (0.360-3.740); Troponin (Emerg Dept Use Only) < 0.02 ng/mL (0.0-0.045)
[2018-02-23] MEDS ORDERED: NA CHLORIDE 0.9% 500 ML ONE (18:38)
--- NOTE | 2018-02-23 19:21 | RAD REPORT ---
EXAM DESCRIPTION: RAD - Chest Single View - 02/23/2018 5:49 pm CLINICAL HISTORY: Presyncope, atrial fibrillation COMPARISON: None. TECHNIQUE: AP portable chest image was obtained 1744 hours . FINDINGS: Lungs are clear. Heart and vasculature are normal. No measurable pleural effusion and no p neumothorax. No acute bony abnormality seen. No acute aortic findings suspected. IMPRESSION: No acute cardiopulmonary process.
--- NOTE | 2018-02-23 20:35 | P.HP ---
Certification for Inpatient Patient admitted to: Inpatient With expected LOS: >2 Midnights Practitioner: I am a practitioner with admitting privileges, knowledge of patient current condition, hospital course, and medical plan of care. Services: Services provided to patient in accordance with Admission requirements found in Title 42 Section 412.3 of the Code of Federal Regulations Patient History Date of Service: 02/23/18 Reason for admission: new onset A.Fib History of Present Illness: Ms Abarca is a 67 years old woman with history of DM II, HTN, who start about 1 years ago with episodes of hypotension and dizziness. Today, the patient went to see Dr Bonilla for a routine exam, and she was found with irregular rhythm. Subsequently, the patient was sent to ED for evalutation. EKG in ER was remarkable for A.Fib at 130 bpm. She was hemodynamically stable. No history of chest pain or SOB. The patient was treated with beta clarissa for rate control. CXR showed no acute abnormalites. Lab work shows normal thyroid function test, negative trop I, elevated ProBNP. Allergies ciprofloxacin [From Cipro] Allergy (Unverified 07/04/17 16:57) Unknown levofloxacin [From Levaquin] Allergy (Unverified 07/04/17 16:57) Unknown meperidine [From Demerol] Allergy (Unverified 07/04/17 16:57) Unknown Green Dye Allergy (Uncoded 07/04/17 16:57) Unknown prenavil Allergy (Uncoded 07/04/17 16:57) Unknown Home medications list reviewed: Yes - Past Medical/Surgical History -: DM II -: HTN Past Surgical History: Reviewed- Non-Contributory - Family History Family History: Reviewed- Non-Contributory - Social History Smoking Status: Never smoker Alcohol use: No CD- Drugs: No Caffeine use: No Place of Residence: Home Review of Systems 10-point ROS is otherwise unremarkable Physical Examination - Physical Exam General: Alert, In no apparent distress HEENT: Atraumatic, PERRLA, Mucous membr. moist/pink, EOMI, Sclerae nonicteric Neck: Supple, 2+ carotid pulse no bruit, No LAD, Without JVD or thyroid abnormality Respiratory: Clear to auscultation bilaterally, Normal air movement Cardiovascular: Normal S1 S2, Irregular heart rate/rhythm Gastrointestinal: Normal bowel sounds, No tenderness Musculoskeletal: No tenderness Integumentary: No rashes Neurological: Normal speech, Normal strength at 5/5 x4 extr, Normal tone, Normal affect Lymphatics: No axilla or inguinal lymphadenopathy - Studies Laboratory Data (last 24 hrs) 02/23/18 17:39: WBC 7.4, Hgb 13.6, Hct 40.3, Plt Count 254 02/23/18 17:39: Sodium 142, Potassium 4.4, BUN 40 H, Creatinine 1.19, Glucose 80 , Magnesium 2.6 H Assessment and Plan - Problems (Diagnosis) (1) New onset a-fib Current Visit: Yes Status: Acute (2) HTN (hypertension) Current Visit: Yes Status: Acute Qualifiers: Hypertension type: essential hypertension Qualified Code(s): I10 - Essential (primary) hypertension (3) Diabetes mellitus Current Visit: Yes Status: Acute Qualifiers: Diabetes mellitus type: type 2 Diabetes mellitus buttermaker continuous churn insulin use: without buttermaker continuous churn use Diabetes mellitus complication status: with unspecified complications Qualified Code(s): E11.8 - Type 2 diabetes mellitus with unspecified complications - Plan Will admit the patient to start treatment, including beta clarissa, anticoagulation, also order an ECHO, consult Cardiology team for evaluation and recommendations. Rate is well controlled at the moment, and the patient remain hemodynamically stable. - Advance Directives Does patient have a Living Will: Yes Does patient have a Durable POA for Healthcare: Yes - Code Status/Comfort Care Code Status Assessed: Yes Code Status: Full Code
[2018-02-23] MEDS ORDERED: ACETAMINOPHEN 500 MG TAB PO PRN (21:03)
[2018-02-23] MEDS ORDERED: ONDANSETRON 4 MG/2 ML VIAL IV PRN (21:03)
[2018-02-23] MEDS: INSULIN -REGULAR HUMAN 50 UNIT/0.5 ML ML SQ SCH (21:03)
[2018-02-23] MEDS ORDERED: METOPROLOL TARTRATE 5 MG/5 ML INJ IV PRN (21:03)
[2018-02-23] MEDS: METOPROLOL TAR 50 MG TAB PO SCH (22:41)
[2018-02-23] MEDS: DABIGATRAN 150 MG CAP PO SCH (22:41)
--- NOTE | 2018-02-23 22:53 | EKG ---
Test Date: 2018-02-23 Test Time: 17:23:00 Escalator Mechanic: LANE MEASUREMENT RESULTS: Intervals: Rate: 129 ID: [id number] QT: 318 QTc: 465 [place]: P: ID: [id number] T: -35 INTERPRETIVE STATEMENTS: Atrial fibrillation with rapid ventricular response T wave abnormality, consider inferior ischemia Abnormal ECG Compared to ECG 02/23/2018 16:40:46 T-wave abnormality now present Electronically Signed On 02-23-18 22:52:40 GREEN COFFEE BLENDER by Luis Kapoor
[2018-02-24 00:21] LABS: Urine Appearance CLEAR; Urine Bilirubin NEGATIVE (NEG); Urine Blood NEGATIVE (NEG); Urine Color YELLOW; Urine Glucose NEGATIVE (NEG); Urine Protein NEGATIVE (NEG); Urine Specific Gravity 1.015 (1.005-1.030)
[2018-02-24 00:24] LABS: Urine Microscopic Reflex ORDER UMIC
[2018-02-24 00:34] LABS: Urine Bacteria <20 /HPF (<20); Urine Culture Reflex Order REFLEXED; Urine RBC NONE SEEN /HPF (NONE SEEN)
[2018-02-24] MEDS: GABAPENTIN 300 MG CAP PO SCH ×3 (00:46→20:39)
[2018-02-24] MEDS ORDERED: PNEUMOCOCCAL VACCINE 0.5 ML IMVAC ONE (06:00)
[2018-02-24] MEDS ORDERED: INFLUENZA VACCINE (for 3y+) 0.5 ML DOSE IMVAC ONE (06:00)
[2018-02-24 06:15] LABS: Absolute Lymphocytes (CBC) 3.4 K/uL (0.7-4.9); Absolute Monocytes 0.6 K/uL (0.1-1.3); Absolute Neutrophil 2.6 K/uL (1.8-8.0); Basophils % 1.1 % (0-1.3); Eosinophils % 6.6 % (0-4.4); Hematocrit 34.3 % (36.0-45.0); Lymphocytes % 47.7 % (15.3-44.8); MPV 8.6 fL (7.6-11.3); Monocytes % 8.3 % (3.3-12.3); RBC Red Blood Cell Count 3.84 M/uL (3.86-4.86)
[2018-02-24 06:29] LABS: Albumin 2.8 g/dL (3.4-5.0); Bilirubin Total 0.2 mg/dL (0.2-1.0); Phosphorus 4.8 mg/dL (2.5-4.9); Potassium 4.2 mmol/L (3.5-5.1); Protein, Total 5.7 g/dL (6.4-8.2)
[2018-02-24] MEDS: INSULIN -REGULAR HUMAN 50 UNIT/0.5 ML ML SQ SCH ×4 (07:30→20:39)
[2018-02-24 08:44] LABS: Platelet Estimate ADEQ
[2018-02-24 08:45] LABS: Blood Morphology Comment NOT SEEN (NOT SEEN)
[2018-02-24] MEDS: METOPROLOL TAR 50 MG TAB PO SCH (10:23)
[2018-02-24] MEDS: DABIGATRAN 150 MG CAP PO SCH ×2 (10:24→20:38)
--- NOTE | 2018-02-24 12:05 | ECHO ---
HEIGHT: 5 ft 2 in WEIGHT: 257 lb 6.4 oz DATE OF STUDY: 02/24/[address]: Farida Pichardo MD 2-DIMENSIONAL: YES M.MODE: YES DOPPLER: YES COLOR FLOW: YES TDS: NO PORTABLE: NO DEFINITY: NO BUBBLE STUDY: NO DIAGNOSIS: NEW ONSET ATRIAL FIBRILLATION CARDIAC HISTORY: CATHERIZATION: YES SURGERY: NO PROSTHETIC VALVE: NO PACEMAKER: NO MEASUREMENTS (cm) DIASTOLIC (NORMALS) SYSTOLIC (NORMALS) IVSd 0.9 (0.6-1.2) LA Diam 4.0 (1.9-4.0) LVEF 59% LVIDd 4.7 (3.5-5.7) LVIDs 3.3 (2.0-3.5) %FS 31% LVPWd 1.0 (0.6-1.2) Ao Diam 2.6 (2.0-3.7) 2 DIMENSIONAL ASSESSMENT: RIGHT ATRIUM: NORMAL LEFT ATRIUM: NORMAL RIGHT VENTRICLE: NORMAL LEFT VENTRICLE: NORMAL TRICUSPID VALVE: NORMAL MITRAL VALVE: NORMAL PULMONIC VALVE: NORMAL AORTIC VALVE: NORMAL PERICARDIAL EFFUSION: NONE AORTIC ROOT: NORMAL LEFT VENTRICULAR WALL MOTION: NORMAL. DOPPLER/COLOR FLOW: MILD MITRAL AND TRICUSPID REGURGITATION. NORMAL RIGHT VENTRICULAR SYSTOLIC PRESSURE. COMMENTS: NORMAL LEFT VENTRICULAR EJECTION FRACTION. ATRIAL FIBRILLATION, HEART RATE 80-90 BEATS PER MINUTE. MILD MITRAL AND TRICUSPID REGURGITATION. TECHNOLOGIST: MARINE VIEYRA
--- NOTE | 2018-02-24 12:53 | CON ---
CARDIOLOGY CONSULT History Of Present Illness: Ms. Abarca came to the hospital because for a month she has been havi ng spells where suddenly her shoulders will feel heavy, then she comes back to normal and then she st arted almost fainting. When an EKG was done in Dr. Tovar's office, he noted AFib and she still is i n AFib on telemetry today. An EKG from yesterday reveals atrial fib, heart rate 129. Presently, the patient's heart rate is lower and she feels fine. She does not notice the irregularity. She has ne jose had AFib before that she knows of. Outpatient Medications: Gabapentin, hydrochlorothiazide, simvastatin, pioglitazone, Avapro, glipizid e, and amlodipine. Past Medical History: She has underlying diabetes, obesity, dyslipidemia and hypertension. No histo ry of vascular disease. Allergies: SHE IS ALLERGIC TO MEPERIDINE, LEVAQUIN, CIPRO, GREEN DYE AND LISINOPRIL. Social History: She uses no tobacco. Rare alcohol. No illegal drugs. Physical Examination: Vital Signs: 5 feet 2, 257 pounds. HEENT: Normal. Lungs: Clear. Heart: Irregularly irregular heart rate during my exam was about in the 70s that is similar to what it is on telemetry. Blood pressure 118/62, temperature 97.3. Impression: The patient has atrial fibrillation. It seems to be persistent atrial fibrillation, it has probably been there for several months. I do not think we have seen any sinus rhythm since she h as been here, so anticoagulation is indicated and she is on dabigatran started by Dr. Pichardo. She is on metoprolol, which I recommend we stop and I will give her sotalol, not so much with the intent of making a chemical cardioversion right now, so much as to load her with the drug so she can do an o utpatient cardioversion if she needs it. Typically, the drug takes a week or so to work before estab lishing sinus rhythm and that would be ideal for her. I think, we should repeat an echocardiogram wh ile she is here. JOHNATHAN/EDDIE Voice ID: [id number] Report ID: [id number]
[2018-02-24] MEDS: SOTALOL HCL 80 MG TAB PO SCH (17:37)
--- NOTE | 2018-02-24 18:17 | PN ---
Date of Progress Note: 02/24/2018 Subjective: The patient is seen and examined. Chart reviewed, and case discussed with RN and Dr. Dmitriy onofre. The patient says that she is doing better, does not have any palpitations or chest pain. Medications: List reviewed. Code Status: Full code. Physical Examination: Vital Signs: Temperature 97.2, heart rate 78, blood pressure 130/81, respirations 18, O2 of 95% on r oom air. General: Awake, alert, oriented x3. An elderly female, morbidly obese. CV: S1, S2, irregularly irregular. Peripheral pulses present. Respiratory: Moving air well bilaterally. No wheezing or stridor. Gastrointestinal: Abdomen is soft, nontender, nondistended. Positive bowel sounds. No guarding or rigidity. Extremities: No clubbing, cyanosis, or edema. No calf tenderness. Neuro: Cranial nerves 2 through 12 intact grossly. No focal neurological deficit. Speech is normal . Laboratory Data: Sodium 143, potassium 4.2, chloride 110, CO2 of 28, BUN 42, creatinine 0.85, glucos e 107, calcium 8.2, phosphorus 4.8, albumin 2.8. WBC 7.1, H and H 11.6 and 34.3, platelets 225, neut rophils 36%. Urine culture pending. Echocardiogram shows EF 59%. Mild mitral and tricuspid regurgi tation. Assessment: A 68-year-old female with: 1.New-onset atrial fibrillation with rapid ventricular response. The patient is rate controlled wit h Lopressor, has been started on sotalol. We will continue with anticoagulation orally. We will con tinue to monitor on cardiac telemetry. 2.Essential hypertension, stable. We will resume home medications. The patient takes irbesartan an d hydrochlorothiazide, which will be continued. We will hold amlodipine for now. We will place para meters for blood pressure medications to hold if less than 120 systolic. 3.Diabetes mellitus type 2 without long-term use of insulin with hyperglycemia. We will continue sl iding scale insulin and Accu-Cheks. 4.Morbid obesity, BMI of 47. 5.Gastrointestinal and deep venous thrombosis prophylaxis addressed. Plan: We will continue current treatment. Follow up on echocardiogram. Appreciate Dr. Kapoor' inpu t. Likely discharge in the next 24 to 48 hours depending on clinical response. /WYATTL Voice ID: [id number] Report ID: [id number]
[2018-02-24] MEDS ORDERED: ZOLPIDEM TARTRATE 5 MG TABLET PO PRN (20:04)
[2018-02-24] MEDS: ATORVASTATIN 10 MG TAB PO SCH (20:39)
[2018-02-24] MEDS ORDERED: GABAPENTIN 1200 MG PO SCH (21:00)
[2018-02-25] MEDS: SOTALOL HCL 80 MG TAB PO SCH ×2 (05:21→17:10)
[2018-02-25 06:45] LABS: Absolute Lymphocytes (CBC) 2.7 K/uL (0.7-4.9); Absolute Monocytes 0.4 K/uL (0.1-1.3); Absolute Neutrophil 2.4 K/uL (1.8-8.0); Basophils % 1.2 % (0-1.3); Eosinophils % 7.6 % (0-4.4); Hematocrit 35.7 % (36.0-45.0); Lymphocytes % 44.8 % (15.3-44.8); MPV 8.2 fL (7.6-11.3); Monocytes % 7.2 % (3.3-12.3); RBC Red Blood Cell Count 3.99 M/uL (3.86-4.86)
[2018-02-25 07:10] LABS: Potassium 4.4 mmol/L (3.5-5.1)
[2018-02-25] MEDS: INSULIN -REGULAR HUMAN 50 UNIT/0.5 ML ML SQ SCH ×4 (07:30→21:00)
[2018-02-25] MEDS ORDERED: HOME MED 1 EA UNK (Gabapentin [Gabapentin] 600 MG) PO SCH (09:00)
[2018-02-25] MEDS: PIOGLITAZONE 15 MG TAB PO SCH (09:29)
[2018-02-25] MEDS: DABIGATRAN 150 MG CAP PO SCH ×2 (09:30→22:04)
[2018-02-25] MEDS: GLIPIZIDE S.A. 5 MG TAB PO SCH (09:30)
[2018-02-25] MEDS: GABAPENTIN 300 MG CAP PO SCH ×2 (09:30→22:04)
[2018-02-25] MEDS: IRBESARTAN 150 MG TAB PO SCH (09:31)
[2018-02-25] MEDS: hydroCHLOROthiazide 25 MG TAB PO SCH (09:31)
[2018-02-25] MEDS: ATORVASTATIN 10 MG TAB PO SCH (22:04)
[2018-02-25 22:56] VITALS: BMI 46.7
--- NOTE | 2018-02-26 01:00 | PN ---
Date of Progress Note: 02/25/2018 Subjective: Ms. Abarca is 68, admitted to Dr. Williamson on 02/23/2018. She was admitted on Pradaxa a nd Betapace. Dr. Kapoor saw her for atrial fibrillation. Betapace was started instead of metoprolol . She has received 2 dosages so far, remains in atrial fibrillation rate of about 75. Echocardiogra m that was done was normal. This case was discussed with Dr. Williamson. Ms. Abarca can certainly go home. We will see her in the office as an outpatient. She will probably do a stress test as an outp atient, and we will give her about 2 to 3 weeks prior to attempting cardioversion. JANNY/EDDIE Voice ID: [id number] Report ID: [id number]
--- NOTE | 2018-02-26 04:38 | DS ---
Date of Discharge: 02/25/2018 Consultants: Dr. Kapoor and Dr. Fisher with Cardiology. Admitting Diagnoses: 1.New-onset atrial fibrillation with rapid ventricular response. 2.Essential hypertension. 3.Diabetes mellitus type 2 without long-term use of insulin, with hyperglycemia. 4.Morbid obesity, body mass index 47. Discharge Diagnoses: 1.New onset of atrial fibrillation with rapid ventricular response, now with controlled ventricular response. 2.Essential hypertension, stable. 3.Diabetes mellitus type 2 without long-term use of insulin, with hyperglycemia, stable. 4.Morbid obesity. Body mass index of 47. Hospital Course: The patient is a 68-year-old female with past medical history of diabetes and hyper tension, who was at Dr. Tovar's office for routine followup when the patient was found to be in irre gular rhythm, and the patient was sent to the ER for further evaluation. EKG showed atrial fibrillat ion, rate in the 130s to 150s. The patient did not have any elevated troponin level. She did compla in of some dizziness, lightheadedness, and palpitations; however, no chest pain or shortness of breat h. The patient was started on IV Lopressor, which improved her rate. She was started on beta-blocke rs. Cardiology was consulted. Echocardiogram was done, showed EF of 59%. Trace mitral and tricuspi d regurgitation. The patient was started on Betapace by Cardiology. The patient did respond to the sotalol. However, she was back and forth between sinus rhythm and atrial fibrillation. The patient was started on anticoagulation with Pradaxa. The patient's symptoms resolved. She was then cleared for discharge from Cardiology standpoint. She did have 1 episode of nonsustained ventricular tachyca rdia for a few seconds, which did not recur. The patient was discharged home in a stable condition. Activity: As tolerated. Medications: As per medication reconciliation list. She will be on Pradaxa 150 mg p.o. b.i.d. and B etapace 40 mg b.i.d. Followup: Follow up with primary care physician in 2 to 3 days. Follow up with color strainer, Dr. Dmitriy onofre, in 2 weeks. Return to ER for worsening condition. Diet: Heart healthy. Physical Examination: General: Awake, alert, oriented, no acute distress. CV: S1, S2. No murmurs. Irregularly irregular. Peripheral pulses present. Respiratory: Moving air well bilaterally. No wheezing. Gastrointestinal: Abdomen is soft, nontender, nondistended. Positive bowel sounds. Extremities: No clubbing, cyanosis, or edema. Neurologic: Nonfocal. Total time spent discharging the patient was 37 minutes. /EDDIE Voice ID: [id number] Report ID: [id number]
[2018-02-26 04:42] LABS: Absolute Lymphocytes (CBC) 2.9 K/uL (0.7-4.9); Absolute Monocytes 0.5 K/uL (0.1-1.3); Absolute Neutrophil 2.5 K/uL (1.8-8.0); Basophils % 1.1 % (0-1.3); Eosinophils % 6.4 % (0-4.4); Hematocrit 36.4 % (36.0-45.0); Lymphocytes % 45.4 % (15.3-44.8); MPV 8.4 fL (7.6-11.3); Monocytes % 7.7 % (3.3-12.3); RBC Red Blood Cell Count 4.12 M/uL (3.86-4.86)
[2018-02-26 05:00] LABS: Potassium 4.2 mmol/L (3.5-5.1)
[2018-02-26] MEDS: SOTALOL HCL 80 MG TAB PO SCH (05:45)
[2018-02-26] MEDS: INSULIN -REGULAR HUMAN 50 UNIT/0.5 ML ML SQ SCH ×2 (07:30→11:30)
[2018-02-26] MEDS: IRBESARTAN 150 MG TAB PO SCH (09:00)
[2018-02-26] MEDS: hydroCHLOROthiazide 25 MG TAB PO SCH (09:00)
[2018-02-26] MEDS: GLIPIZIDE S.A. 5 MG TAB PO SCH (09:04)
[2018-02-26] MEDS: PIOGLITAZONE 15 MG TAB PO SCH (09:04)
[2018-02-26] MEDS: DABIGATRAN 150 MG CAP PO SCH (09:05)
[2018-02-26] MEDS: GABAPENTIN 300 MG CAP PO SCH (09:05)
[2018-02-26] MEDS: NITROGLYCERIN 0.4 MG/TAB SL PRN ×3 (10:55→11:05)
[2018-02-26 12:22] VITALS: BP 128/66; TEMP 98.3
--- NOTE | 2018-02-26 14:14 | EKG ---
Test Date: 2018-02-26 Test Time: 10:54:10 Metal Base Blocker: MARISABEL MEASUREMENT RESULTS: Intervals: Rate: 104 MN: QRSD: 88 QT: 388 QTc: 510 Dawson: P: MN: QRS: 51 T: 39 INTERPRETIVE STATEMENTS: Atrial fibrillation with rapid ventricular response Abnormal ECG Compared to ECG 02/23/2018 17:23:00 T-wave abnormality no longer present Possible ischemia no longer present Electronically Signed On 02-26-18 14:13:13 MERCHANDISING COORDINATOR by Luis Kapoor
[2018-02-26 15:45] VITALS: O2SAT 96
--- NOTE | 2018-02-26 16:28 | PN ---
Date of Progress Note: 02/26/2018 Subjective: The patient is seen and examined. Chart reviewed and case discussed with RN. The patie nt was discharged yesterday, however, due to arrhythmias and nonsustained V-tach, the patient's disch arge was held. The patient has been doing well other than this afternoon when she had episode of sneha st pain, which resolved with nitroglycerin. Medications: List reviewed. Physical Examination: Vital Signs: Temperature 98.3, heart rate 75, blood pressure 128/66, respirations 20, and O2 of 96% on room air. General: Awake, alert, and oriented x3, not in any acute distress. Elderly female, morbidly obese. CV: S1 and S2, irregularly irregular, rate controlled. Peripheral pulses are present. Respiratory: Moving air well bilaterally. No wheezing. Gastrointestinal: Abdomen is soft, nontender, and nondistended. Positive bowel sounds. Extremities: No clubbing, cyanosis, or edema. Neurologic: Nonfocal. Laboratory Data: Sodium 144, potassium 4.2, chloride 111, CO2 of 29, BUN 29, creatinine 0.78, glucos e 108, and calcium 8.3. Troponin less than 0.02. WBC 6.3, H and H of 12.4 and 36.4, platelets 221, neutrophils 39%. Assessment And Plan: A 68-year-old female with, 1.New-onset atrial fibrillation with rapid ventricular response, now with controlled ventricular rat e. 2.Essential hypertension, stable. 3.Chest pain. Troponins negative. EKG shows atrial fibrillation with controlled ventricular rate a t 104, resolved with nitroglycerin. 4.Diabetes mellitus type 2 without long-term use of insulin with hyperglycemia, stable. 5.Morbid obesity, BMI of 47. 6.Nonsustained ventricular tachycardia. Plan: Discharge home on sotalol and Pradaxa. The patient is to follow up with Cardiology in the nex t couple of weeks for cardioversion as she is in persistent atrial fibrillation. SA/MODL Voice ID: [id number] Report ID: [id number]
== END 2018-02-26 15:41 | disposition home or self-care (01) | DRG 309 ==
LOC: ER 17:07 → ERHOLD 18:10 → 2ND 20:35
PROVIDERS: ADMIT Family Medicine; ATTEND Family Medicine
DX: I48.91 Unspecified atrial fibrillation (principal); Z68.42 Body mass index [BMI] 45.0-49.9, adult; E11.9 Type 2 diabetes mellitus without complications; I10 Essential (primary) hypertension; E66.01 Morbid (severe) obesity due to excess calories; I47.2 Ventricular tachycardia; Z23 Encounter for immunization
CPT/HCPCS: 36415; 71045; 77063; 77067; 80048; 80053; 81003; 81015; 82962; 83735; 83880; 84100; 84439; 84443; 84484; 85025; 87086; 87088; 90670; 93005; 93306; 94760; 96361; 96374; 99285; G0008; G0009; Q2035

== ENCOUNTER 2019-04-16 08:12 | Emergency (ER) | payer OTHER ==
--- OUTSIDE RECORDS SUMMARY | 2019-04-16 08:15 | XMS REPORT ---
:1950 [facility] Address [address] [place] [address] Care Team Providers Name Role Phone Unavailable Unavailable Unavailable Payers Payer Name Policy Type Policy Number Effective Date Expiration Date Problems This patient has no known problems. Allergies, Adverse Reactions, Alerts Allergy Name Allergy Status Severity Reaction(s) Onset Inactive Treating Comments Type Date Date Clinician lisinopril DA Active CO 06-07 00:00: 00 ciprofloxacin DA Active CO 06-07 00:00: 00 meperidine DA Active CO 06-07 00:00: 00 levofloxacin DA Active CO 06-07 00:00: 00 FD and C green DA Active CO no.3 06-07 00:00: 00 lisinopril DA Active CO 05-12 00:00: 00 ciprofloxacin DA Active CO 05-12 00:00: 00 meperidine DA Active CO 05-12 00:00: 00 levofloxacin DA Active CO 05-12 00:00: 00 FDNC GREEN # 3 DA Active CO 05-12 00:00: 00 FD and C green DA Active CO no.3 05-12 00:00: 00 DEMEROL DA Active U 2004-02 0- 00:00: 00 No Known Food DA Active U 2004-02 Allergies 0-05 00:00: 00 No Known Other DA Active U 2004-02 Allergies 0-05 00:00: 00 Medications This patient has no known medications. Results Test Description Test Time Test Comments Text Results Atomic Results Result Comments GLUBED 2018-06-07 07:21:00 Test Item Value Reference Range Comments GLUBED (test code=GLUBED) 91 mg/dL 60-125 BASIC METABOLIC [id number] 18:14:00 Test Item Value Reference Range Comments SODIUM (test code=NA) 142 mmol/L 136-145 POTASSIUM (test code=K) 4.3 mmol/L 3.5-5.1 CHLORIDE (test code=CL) 106.0 mmol/L 98-107 CARBON DIOXIDE (test 28.6 mmol/L 21-32 code=CO2) GLUCOSE (test code=GLU) 99 mg/dL 70-110 BLOOD UREA NITROGEN (test 30 mg/dL 7-18 code=BUN) GLOMERULAR FILTRATION RATE 69.5 >60 Unit of measure: (test code=GFR) mL/min/1.73 [id number] Range:Healthy Adults >90 mL/min/1.73 m2 For Chronic Kidney Disease: Stage II Mild Decrease in GFR 60-90 Stage III Moderate Decrease in GFR 30-59 Stage IV Severe Decrease in GFR 15-29 Stage V Kidney Failure <15 CREATININE (test code=CREAT) 0.82 mg/dL 0.55-1.30 CALCIUM (test code=CA) 8.7 mg/dL 8.2-10.1 HGB [id number] 18:10:00 Test Item Value Reference Range Comments HEMOGLOBIN (test code=HGB) 12.7 g/dL 12-16 HEMATOCRIT (test code=HCT) 39.3 % 37-47
--- NOTE | 2019-04-16 10:32 | RAD REPORT ---
EXAM DESCRIPTION: RAD - Ankle Right 3 View - 04/16/2019 8:54 am CLINICAL HISTORY: PAIN COMPARISON: Ankle Left 3 View dated 07/04/2017 FINDINGS: Tiny ossific fragment is seen along the inferior margin of medial malleolus could be a sma ll avulsion fracture. Age of this injury, however, is unclear. Correlation with clinical point tender ness in this region would be suggested. Soft tissue swelling is also seen lateral malleolus without f racture evident. Large posterior and plantar calcaneal spurs are seen.
[2019-04-16] MEDS ORDERED: HYDROCODONE/APAP 10/325 TAB ONE (10:46)
--- NOTE | 2019-04-16 10:55 | EDPHYS ---
Physician Documentation [facility] Name: Sumi Abarca Age: 69 yrs Sex: Female : 1950 Arrival Date: 04/16/2019 Time: 08:18 Bed 18 Private MD: Roscoe Frances E ED Physician Dave Pitts HPI: 08:39 This 69 yrs old Female presents to ER via Wheelchair with complaints of Fall pm1 Injury, Foot Injury. 08:39 The patient presents with pain, that is acute. The complaints affect the right ankle. pm1 Onset: The symptoms/episode began/occurred yesterday. Context: The problem was sustained outdoors, resulted from believes that she turned her right ankle after stepping on uneven ground. Associated signs and symptoms: Pertinent positives: swelling, of the distal lateral aspect of right calf, Pertinent negatives: calf tenderness, fever, numbness, tingling. Modifying factors: The symptoms are alleviated by elevation of extremity, the symptoms are aggravated by weight bearing. Severity of symptoms: in the emergency department the symptoms are unchanged. The patient has not experienced similar symptoms in the past. Historical: - Allergies: 08:32 Cipro; iw 08:32 Demerol; iw 08:32 Green Dye; iw 08:32 Levaquin; iw 08:32 prenavil; iw - PMHx: 08:32 Diabetes - NIDDM; Hypertension; iw - Immunization history:: Adult Immunizations not up to date. - Social history:: Smoking status: Patient denies any tobacco usage or history of. ROS: 08:39 Constitutional: Negative for fever, chills, and weight loss, Neck: Negative for injury, pm1 pain, and swelling, Cardiovascular: Negative for chest pain, palpitations, and edema, Respiratory: Negative for shortness of breath, cough, wheezing, and pleuritic chest pain, Back: Negative for injury and pain. 08:39 Skin: Negative for injury, rash, and discoloration, Neuro: Negative for headache, weakness, numbness, tingling, and seizure. 08:39 MS/extremity: Positive for pain, swelling, of the right lateral malleolus, Negative for decreased range of motion, deformity. Exam: 08:39 Constitutional: This is a well developed, well nourished patient who is awake, alert, pm1 and in no acute distress. Head/Face: Normocephalic, atraumatic. Neck: Trachea midline, no thyromegaly or masses palpated, and no cervical lymphadenopathy. Supple, full range of motion without nuchal rigidity, or vertebral point tenderness. No Meningismus. Chest/axilla: Normal chest wall appearance and motion. Nontender with no deformity. No lesions are appreciated. Cardiovascular: Regular rate and rhythm with a normal S1 and S2. No gallops, murmurs, or rubs. Normal PMI, no JVD. No pulse deficits. Respiratory: Lungs have equal breath sounds bilaterally, clear to auscultation and percussion. No rales, rhonchi or wheezes noted. No increased work of breathing, no retractions or nasal flaring. Back: No spinal tenderness. No costovertebral tenderness. Full range of motion. Skin: Warm, dry with normal turgor. Normal color with no rashes, no lesions, and no evidence of cellulitis. 08:39 Musculoskeletal/extremity: Extremities: grossly normal except: noted in the right lateral malleolus: swelling, There is no evidence of decreased ROM, deformity. Vital Signs: 08:32 BP 146 / 77; Pulse 50; Resp 16; Temp 97.7; Pulse Ox 99% on R/A; Weight 117.93 kg; iw Height 5 ft. 2 in. (157.48 cm); Pain 10/10; 10:43 BP 138 / 71; Pulse 54; Resp 18; Pulse Ox 99% on R/A; Pain 10/10; em 08:32 Body Mass Index 47.55 (117.93 kg, 157.48 cm) iw MDM: 08:35 Patient medically screened. pm1 08:39 ED course: Patient refused pain medications. Takes hydrocodone at home for chronic pm1 shoulder pain and right knee pain. 10:40 ED course: No right medial malleolus pain. pm1 10:53 Data reviewed: vital signs. Data interpreted: Pulse oximetry: on room air is 99 %. pm1 Interpretation: normal. Counseling: I had a detailed discussion with the patient and/or guardian regarding: the historical points, exam findings, and any diagnostic results supporting the discharge/admit diagnosis, radiology results, the need for outpatient follow up, to return to the emergency department if symptoms worsen or persist or if there are any questions or concerns that arise at home. 08:39 Order name: Ankle Right 3 View XRAY; Complete Time: 10:34 pm1 10:26 Order name: Carlos wrap-joint; Complete Time: 10:44 pm1 Administered Medications: 10:43 Drug: HYDROcodone-acetaminophen 10 mg-325 mg 1 tabs Route: PO; em 11:00 Follow up: Response: No adverse reaction em Disposition: 04/16/19 10:54 Discharged to Home. Impression: Pain in right ankle and joints of right foot. - Condition is Stable. - Discharge Instructions: Ankle Pain. - Medication Reconciliation Form, Thank You Letter, Antibiotic Education, Prescription Opioid Use form. - Follow up: Emergency Department; When: As needed; Reason: Worsening of condition. Follow up: Private Physician; When: 2 - 3 days; Reason: Recheck today's complaints, Continuance of care, Re-evaluation by your physician. - Problem is new. - Symptoms have improved. Addendum: 04/17/2019 17:53 Co-signature as Attending Physician, Dave Pitts MD I agree with the assessment and c sargent plan of care. Signatures: Dispatcher [employer] Dave Call MD MD cha Munoz, Edgar, RN RN Maryjo Martinez RN RN iw Chi Arroyo NP [employer] pm1 Corrections: (The following items were deleted from the chart) 11:01 10:54 04/16/2019 10:54 Discharged to Home. Impression: Pain in right ankle and joints em of right foot. Condition is Stable. Forms are Medication Reconciliation Form, Thank You Letter, Antibiotic Education, Prescription Opioid Use. Follow up: Emergency Department; When: As needed; Reason: Worsening of condition. Follow up: Private Physician; When: 2 - 3 days; Reason: Recheck today's complaints, Continuance of care, Re-evaluation by your physician. Problem is new. Symptoms have improved. pm1
--- NOTE | 2019-04-16 10:55 | ER ---
Nurse's Notes [facility] Name: Sumi Aabrca Age: 69 yrs Sex: Female : 1950 Arrival Date: 04/16/2019 Time: 08:18 Bed 18 Private MD: Roscoe Franecs E Diagnosis: Pain in right ankle and joints of right foot Presentation: 08:31 Chief complaint: Patient states: was walking out to car and stepped off edge of concrete and injured right foot has knot above ankle and can't bear weight. Care prior to arrival: None. 08:31 Method Of Arrival: Wheelchair iw 08:31 Acuity: AYANA 4 iw 09:00 Coronavirus screen: The patient has NOT traveled to [place] in the past 14 days. The em patient has NOT had contact with known and/or suspected case of Coronavirus. Ebola Screen: Patient negative for fever greater than or equal to 101.5 degrees Fahrenheit, and additional compatible Ebola Virus Disease symptoms Patient denies exposure to infectious person. Patient denies travel to an Ebola-affected area in the 21 days before illness onset. No symptoms or risks identified at this time. Initial Sepsis Screen: Does the patient meet any 2 criteria? No. Patient's initial sepsis screen is negative. Does the patient have a suspected source of infection? No. Patient's initial sepsis screen is negative. Risk Assessment: Do you want to hurt yourself or someone else? Patient reports no desire to harm self or others. Historical: - Allergies: 08:32 Cipro; iw 08:32 Demerol; iw 08:32 Green Dye; iw 08:32 Levaquin; iw 08:32 prenavil; iw - PMHx: 08:32 Diabetes - NIDDM; Hypertension; iw - Immunization history:: Adult Immunizations not up to date. - Social history:: Smoking status: Patient denies any tobacco usage or history of. Screenin:00 Abuse screen: Denies threats or abuse. Nutritional screening: No deficits noted. em Tuberculosis screening: No symptoms or risk factors identified. Fall Risk Fall in past 12 months (25 points). No IV (0 pts). Total Celestin Fall Scale indicates Low Risk Score (25-44 pts). Side Rails Up X 2 Frequent Obs/Assesments occuring As available Patient and Family Educated on Fall Prevention Program and strategies. Assessment: 08:40 General: Appears in no apparent distress. Behavior is calm, cooperative. Pain: iw Complains of pain in right foot and right lateral malleolus. Neuro: Level of Consciousness is awake, alert, obeys commands, Oriented to person, place, time, situation. Cardiovascular: Patient's skin is warm and dry. Respiratory: Respiratory effort is even, unlabored, Respiratory pattern is regular. 09:00 General: Appears in no apparent distress. comfortable, Behavior is calm, cooperative. em Pain: Complains of pain in right lateral malleolus Pain currently is 10 out of 10 on a pain scale. Pain began 1 day ago. Neuro: Level of Consciousness is awake, alert, obeys commands, Oriented to person, place, time, situation, Appropriate for age. Cardiovascular: Capillary refill < 3 seconds Patient's skin is warm and dry. Respiratory: Airway is patent Respiratory effort is even, unlabored, Respiratory pattern is regular, symmetrical. Derm: Skin is intact, is healthy with good turgor, Skin is pink, warm \T\ dry. Musculoskeletal: Capillary refill < 3 seconds, Range of motion: intact in all extremities, Swelling present in right lateral malleolus Reports unable to bear weight. 10:28 Reassessment: Patient appears in no apparent distress at this time. Patient and/or em family updated on plan of care and expected duration. Pain level reassessed. pending X-ray results from radiologist. Vital Signs: 08:32 BP 146 / 77; Pulse 50; Resp 16; Temp 97.7; Pulse Ox 99% on R/A; Weight 117.93 kg; iw Height 5 ft. 2 in. (157.48 cm); Pain 10/10; 10:43 BP 138 / 71; Pulse 54; Resp 18; Pulse Ox 99% on R/A; Pain 10/10; em 08:32 Body Mass Index 47.55 (117.93 kg, 157.48 cm) iw ED Course: 08:18 Patient arrived in ED. mr 08:18 Roscoe Frances MD is Private Physician. mr 08:32 Triage completed. iw 08:32 Arm band placed on. iw 08:34 Chi Arroyo NP is PHCP. pm1 08:34 Dave Pitts MD is Attending Physician. pm1 08:54 Ankle Right 3 View XRAY In Process Unspecified. EDMS 08:59 Joseph Cheatham, RN is Primary Nurse. em 09:00 Patient has correct armband on for positive identification. Bed in low position. Call em light in reach. Side rails up X2. Adult w/ patient. 10:42 Carlos wrap to right ankle Pedal pulse was present at 55 beats per minute and capillary jb1 refill was less than 3 seconds before and after application of CARLOS wrap. 10:59 No provider procedures requiring assistance completed. Patient did not have IV access em during this emergency room visit. Administered Medications: 10:43 Drug: HYDROcodone-acetaminophen 10 mg-325 mg 1 tabs Route: PO; em 11:00 Follow up: Response: No adverse reaction em Outcome: 10:54 Discharge ordered by MD. pm1 10:59 Discharged to home via wheelchair, with family. em 10:59 Condition: good 10:59 Discharge instructions given to patient, family, Instructed on discharge instructions, follow up and referral plans. Demonstrated understanding of instructions, follow-up care. 11:01 Patient left the ED. em Signatures: Dispatcher [employer] Ghanshyam Taylor jb1 Ghazal Natarajan Joseph Cheatham, RN RN Maryjo Martinez RN RN iw Chi Arroyo NP HEALTH AND SAFETY ADVISOR pm1
[2019-04-16 11:07] VITALS: TEMP 97.7; O2SAT 99
[2019-04-16 11:09] VITALS: BP 138/71
== END 2019-04-16 11:01 | disposition home or self-care (01) ==
LOC: ER 08:12
DX: M25.571 Pain in right ankle and joints of right foot (principal); Z88.1 Allergy status to other antibiotic agents; Z88.6 Allergy status to analgesic agent; X50.1XXA Overexertion from prolonged static or awkward postures, initial encounter; Y93.01 Activity, walking, marching and hiking; Y92.9 Unspecified place or not applicable
CPT/HCPCS: 99283

== ENCOUNTER → 2022-10-29 | Day surgery (SDC) | payer OTHER ==
[~2022-10-29] MED LIST: ATROPINE SULF 1 MG/10 ML SYR IV ONE; FLUMAZENIL 0.1 MG/ML (5 mL VIAL) IV ONE; HYDRALAZINE HCL 20 MG/ML VIAL ONE; LIDOCAINE 2% MPF 5 ML VIAL ONE; MIDAZOLAM HCL 0 ML ONE; NA CHLORIDE 0.9% 500 ML ONE; SIMPLE SYRUP 20 ML, LIDOCAINE 2% VISCOUS ORAL 20 ML MM ONE; propofoL 200 MG/20 ML VIAL IV ONE
--- NOTE | 2022-10-29 11:26 | OP ---
Date of Procedure: 10/29/2022 Surgeon: TRISH CHAVEZ Procedure Performed: Transesophageal echocardiogram. Indication: Atrial fibrillation, status post Watchman placement. Description Of Procedure: After risks, benefits, alternatives were explained and after proper time-o ut, we numbed the back of the throat using viscous lidocaine and then Anesthesia was present. Propof ol was administered and then ODALIS probe was inserted without difficulty. Watchman was seated well. N o thrombus. No leak. ODALIS probe was removed. Patient tolerated the procedure very well. SR/MODL Voice ID: [id number] Report ID: [id number]
--- NOTE | 2022-10-29 13:23 | TEE ---
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 TRANSESOPHAGEAL ECHOCARDIOGRAM PROBE INSERTED, NO DIFFICULTY 2. WATCHMAN IS SEATED WELL, NO LEAK, NO THROMBUS 3. MILD MITRAL REGURGITATION 4. NORMAL LEFT VENTRICULAR EJECTION FRACTION 55-60% 5. NO PERICARDIAL EFFUSION IS SEEN TECHNOLOGIST: MARINE MARTINEZ
== END | disposition home or self-care (01) ==
LOC: EKG 08:00
PROVIDERS: ATTEND Internal Medicine
DX: I48.0 Paroxysmal atrial fibrillation (principal); R00.2 Palpitations; I10 Essential (primary) hypertension; E78.5 Hyperlipidemia, unspecified; E11.9 Type 2 diabetes mellitus without complications; Z98.890 Other specified postprocedural states; Z79.82 Long term (current) use of aspirin; Z79.899 Other long term (current) drug therapy; Z88.8 Allergy status to other drugs, medicaments and biological substances
CPT/HCPCS: 93312; J0360; J0461; J2001; J2250; J2704; J7040